=== PATIENT | female | born 1990 | race Caucasian/White ===

== ENCOUNTER 2017-10-18 14:04 | Emergency (ER) | payer MEDICAID ==
[~2017-10-18] VITALS: Ht 157.5 cm; Wt 51.0 kg
[~2017-10-18 14:04] MED LIST: AMOX500C2 PO; HYDR-3965 PO; ONDA4TAB9 PO
[2017-10-18 14:28] LABS: CLARITY,URINE CLEAR (Clear); COLOR,URINE YELLOW (Yellow); GLUCOSE, URINE NEGATIVE (Neg); KETONES,URINE TRACE mg/dl (Neg); LEUKOCYTE ESTERASE ,URINE NEGATIVE (Neg); NITRITES, URINE NEGATIVE (Neg); OCCULT BLOOD,URINE NEGATIVE (Neg); PROTEIN,URINE NEGATIVE (Neg)
[2017-10-18 14:29] LABS: UA COLLECTION TYPE VOIDED
[2017-10-18 14:30] LABS: URINE HCG NEGATIVE (NEG)
[2017-10-18 14:45] LABS: BASOPHILS % (AUTO) 0.4 % (0-1); EOSINOPHILS # (AUTO) 0.1 X10'3 (0-0.9); EOSINOPHILS % (AUTO) 1.7 % (0-6); HEMATOCRIT 41.5 % (35.0-45.0); HEMOGLOBIN 14.2 g/dl (12.0-16.0); LYMPHOCYTES # (AUTO) 0.9 X10'3 (1.1-4.8); MEAN CORPUSCULAR HGB CONC 34.1 % (33.0-36.5); MEAN PLATELET VOLUME 7.8 FL (7.4-10.4); MONOCYTES # (AUTO) 0.4 X10'3 (0-0.9); NEUTROPHILS # (AUTO) 3.8 X10'3 (1.8-7.7); NEUTROPHILS % (AUTO) 72.9 % (42-75); PLATELET COUNT 271 X10'3 (140-440); RED BLOOD COUNT 4.72 X10'6 (4.20-5.60); RED CELL DISTRIBUTION WIDTH 13.1 % (11.5-14.5); WHITE BLOOD COUNT 5.2 X10'3 (4.5-11.0)
[2017-10-18 14:54] LABS: PROTHROMBIN TIME 10.5 SECONDS (9.0-12.0)
[2017-10-18 15:05] LABS: ALANINE AMINOTRANSFERASE 16 U/L (12-78); ALBUMIN 4.1 G/DL (3.4-5.0); ALKALINE PHOSPHATASE 80 IU/L (46-116); ANION GAP 9 (8-16); ASPARTATE AMINO TRANSFERASE 13 U/L (10-37); BILIRUBIN,TOTAL 0.6 MG/DL (0.1-1.0); BLOOD UREA NITROGEN 11 MG/DL (7-18); BUN/CREATININE RATIO 12.1 (6.6-38.0); CALCIUM 9.3 MG/DL (8.5-10.1); CHLORIDE 102 MMOL/L (99-107); CREATININE 0.91 MG/DL (0.40-0.90); GLUCOSE 90 MG/DL (70-104); POTASSIUM 4.1 MMOL/L (3.5-5.1); SODIUM 139 MMOL/L (135-145); TOTAL CARBON DIOXIDE 27.9 MMOL/L (24-32); TOTAL PROTEIN 8.2 G/DL (6.4-8.2); eGFR 75 ML/MIN
[2017-10-18] MEDS ORDERED: normal saline 1000ML IV soln IVB ONE (15:35)
[2017-10-18 15:56] LABS: LIPASE 134 U/L (73-393)
[2017-10-18] MEDS ORDERED: magnesium citrate 296ml oral solution PO ONE (16:25)
[2017-10-18 16:43] VITALS: BP 106/51
== END 2017-10-18 16:50 | disposition home or self-care (01) ==
LOC: ER 14:04
DX: K59.00 Constipation, unspecified (principal); R10.12 Left upper quadrant pain; R30.0 Dysuria; N89.8 Other specified noninflammatory disorders of vagina; J45.909 Unspecified asthma, uncomplicated; F17.200 Nicotine dependence, unspecified, uncomplicated; Z88.1 Allergy status to other antibiotic agents
CPT/HCPCS: 36415; 71045; 80053; 81003; 81025; 83690; 85025; 85610; 99285; J7030

== ENCOUNTER 2018-10-13 08:55 | Emergency (ER) | payer MEDICAID ==
[~2018-10-13] VITALS: Ht 154.9 cm; Wt 49.0 kg
[2018-10-13] MEDS ORDERED: azithromycin 250mg tablet PO ONE (10:25)
[2018-10-13] MEDS ORDERED: CefTRIAXone 250MG inj IM ONE (10:25)
[2018-10-13] MEDS ORDERED: penicillin G benzathine 1.2 million unit/2ml syringe IM ONE (10:25)
[2018-10-13] MEDS ORDERED: ondansetron 4mg rapidly disintigrating tab PO ONE (10:25)
[2018-10-13] MEDS ORDERED: CefTRIAXone 250MG IM Kit w/LIDOcaine IM ONE (10:45)
[2018-10-13 11:15] VITALS: BP 101/56
--- NOTE | 2018-10-13 12:01 | NUR ---
Dr Monroy in to address all questions and concerns prior to discharge.
[2018-10-14 06:11] LABS: RPR Non Reactive (Non Reactive)
== END 2018-10-13 12:00 | disposition home or self-care (01) ==
LOC: ER 08:55
DX: N89.8 Other specified noninflammatory disorders of vagina (principal); J45.909 Unspecified asthma, uncomplicated; F17.200 Nicotine dependence, unspecified, uncomplicated; F10.99 Alcohol use, unspecified with unspecified alcohol-induced disorder; F12.90 Cannabis use, unspecified, uncomplicated; Z20.2 Contact with and (suspected) exposure to infections with a predominantly sexual mode of transmission; Z88.1 Allergy status to other antibiotic agents; Z79.899 Other long term (current) drug therapy; Y90.9 Presence of alcohol in blood, level not specified
CPT/HCPCS: 36415; 86592; 87491; 87591; 96372; 99283; J0561; J0696; J2405

== ENCOUNTER 2019-07-15 04:05 | Emergency (ER) | payer MEDICAID ==
[~2019-07-15] VITALS: Ht 154.9 cm; Wt 50.0 kg
[2019-07-15] MEDS ORDERED: AMOX500C2 PO (04:10)
[2019-07-15] MEDS ORDERED: METH4TAB81 PO (04:10)
[2019-07-15] MEDS ORDERED: HYDR-3965 PO (04:14)
[2019-07-15] MEDS ORDERED: ONDA4TAB6 PO (04:14)
[2019-07-15] MEDS ORDERED: ketorolac tromethamine 15mg/ml inj. IM ONE (04:15)
[2019-07-15] MEDS ORDERED: acetaminophen 325mg tablet PO ONE (04:15)
[2019-07-15 04:26] VITALS: BP 137/91
== END 2019-07-15 04:27 | disposition home or self-care (01) ==
LOC: ER 04:06
DX: K04.1 Necrosis of pulp (principal); J45.909 Unspecified asthma, uncomplicated; F12.90 Cannabis use, unspecified, uncomplicated; Z72.89 Other problems related to lifestyle; Z79.899 Other long term (current) drug therapy; Z88.1 Allergy status to other antibiotic agents
CPT/HCPCS: 96372; 99283; J1885

== ENCOUNTER 2019-08-24 10:52 | Emergency (ER) | payer MEDICAID ==
[~2019-08-24] VITALS: Ht 154.9 cm; Wt 55.0 kg
[~2019-08-24 10:52] MED LIST changes: +METH4TAB81 PO; +ONDA4TAB6 PO
[2019-08-24 10:56] VITALS: BP 131/84
[2019-08-24] MEDS ORDERED: AMOX-422 PO (11:28)
[2019-08-24] MEDS ORDERED: VIT1LOZE PO (11:41)
== END 2019-08-24 11:52 | disposition home or self-care (01) ==
LOC: ER 10:52
DX: J02.0 Streptococcal pharyngitis (principal); B95.0 Streptococcus, group A, as the cause of diseases classified elsewhere; J45.909 Unspecified asthma, uncomplicated; F12.90 Cannabis use, unspecified, uncomplicated; Z72.89 Other problems related to lifestyle; Z88.1 Allergy status to other antibiotic agents; Z79.899 Other long term (current) drug therapy
CPT/HCPCS: 87880; 99283

== ENCOUNTER 2019-11-17 02:54 | Emergency (ER) | payer MEDICAID ==
[~2019-11-17] VITALS: Ht 154.9 cm; Wt 52.3 kg
[~2019-11-17 02:54] MED LIST changes: +VIT1LOZE PO
--- NOTE | 2019-11-17 03:33 | NUR ---
pt just got back from xray
[2019-11-17] MEDS ORDERED: terbutaline 1 mg/ml inj SQ STA (03:49)
[2019-11-17] MEDS ORDERED: azithromycin 250mg tablet PO ONE (03:50)
[2019-11-17] MEDS ORDERED: albuterol 2.5 MG/3 ML nebule CONTNEB PRN (03:50)
--- NOTE | 2019-11-17 04:06 | NUR ---
SHE SOUNDS A LITTLE WHEEZY WHEN I WAS GIVING HER THE BREATHINE INJ.
[2019-11-17] MEDS ORDERED: benzonatate 100mg capsule PO ONE (04:50)
[2019-11-17] MEDS ORDERED: LIDOcaine 40mg/ml topical solution IH ONE (05:50)
--- NOTE | 2019-11-17 05:50 | NUR ---
pt still continuously coughing despite RX. notified, orders received.
[2019-11-17] MEDS ORDERED: BENZ-16 PO (06:51)
[2019-11-17] MEDS ORDERED: ALBU6.7H9 INH (06:51)
[2019-11-17] MEDS ORDERED: PRED20TA PO (06:51)
[2019-11-17 07:18] VITALS: BP 137/95
[2019-11-17] MEDS ORDERED: ALBU8HFA PO (12:49)
[2019-11-18] MEDS ORDERED: PRED10TA23 PO (12:32)
[2019-11-18] MEDS ORDERED: LEVO500T89 PO (12:45)
== END 2019-11-17 07:19 | disposition home or self-care (01) ==
LOC: ER 02:55
DX: J45.901 Unspecified asthma with (acute) exacerbation (principal); F17.210 Nicotine dependence, cigarettes, uncomplicated; F12.90 Cannabis use, unspecified, uncomplicated; Z72.89 Other problems related to lifestyle; Z88.1 Allergy status to other antibiotic agents; Z79.899 Other long term (current) drug therapy
CPT/HCPCS: 71046; 94640; 94644; 96372; 99285; J2001; J3105; 94760

== ENCOUNTER 2019-11-17 10:50 | Inpatient (IN) | payer MEDICAID ==
[~2019-11-17] VITALS: Ht 154.9 cm; Wt 52.3 kg
[~2019-11-17 10:50] MED LIST changes: +ALBU6.7H9 INH; +BENZ-16 PO; +PRED20TA PO
[2019-11-17] MEDS ORDERED: magnesium 2GM in 50ml NS 50 ML IV ONE (11:10)
[2019-11-17] MEDS ORDERED: normal saline 1000ML IV soln IVB ONE (11:10)
[2019-11-17] MEDS ORDERED: methylPREDNISolone sod succ 125mg/2ml vial IV ONE (11:10)
[2019-11-17] MEDS ORDERED: albuterol 2.5 MG/3 ML nebule CONTNEB PRN (11:10)
[2019-11-17] MEDS ORDERED: CefTRIAXone 2gm/D5W 50ml 50 ML IV ONE (11:25)
[2019-11-17] MEDS ORDERED: azithromycin/NS 500mg/250ml 250 ML IV ONE (11:25)
[2019-11-17] MEDS ORDERED: terbutaline 1 mg/ml inj SQ STA (11:25)
[2019-11-17] MEDS ORDERED: LORazepam 2 mg/ml vial IV ONE (11:25)
[2019-11-17 11:34] LABS: BASOPHILS # (AUTO) 0.1 X10'3 (0-0.2); BASOPHILS % (AUTO) 0.8 % (0-1); EOSINOPHILS # (AUTO) 0.7 X10'3 (0-0.9); EOSINOPHILS % (AUTO) 6.3 % (0-6); HEMOGLOBIN 13.6 g/dl (12.0-16.0); LYMPHOCYTES # (AUTO) 1.9 X10'3 (1.1-4.8); LYMPHOCYTES % (AUTO) 16.9 % (21-51); MEAN CORPUSCULAR HEMOGLOBIN 30.1 PG (27.0-31.0); MEAN CORPUSCULAR HGB CONC 33.9 g/dL (33.0-36.5); MEAN CORPUSCULAR VOLUME 88.7 FL (78-98); MONOCYTES # (AUTO) 0.7 X10'3 (0-0.9); MONOCYTES % (AUTO) 6.5 % (2-12); NEUTROPHILS # (AUTO) 7.8 X10'3 (1.8-7.7); NEUTROPHILS % (AUTO) 69.5 % (42-75); PLATELET COUNT 273 X10'3 (140-440); RED BLOOD COUNT 4.51 X10'6 (4.20-5.60); RED CELL DISTRIBUTION WIDTH 13.7 % (11.5-14.5); WHITE BLOOD COUNT 11.2 X10'3 (4.5-11.0)
[2019-11-17 11:51] LABS: ALANINE AMINOTRANSFERASE 29 U/L (12-78); ALBUMIN 4.5 G/DL (3.4-5.0); ALBUMIN/GLOBULIN RATIO 1.3 (1.1-1.5); ALKALINE PHOSPHATASE 58 IU/L (46-116); ANION GAP 11 (8-16); ASPARTATE AMINO TRANSFERASE 33 U/L (10-37); BILIRUBIN,TOTAL 0.5 MG/DL (0.1-1.0); BLOOD UREA NITROGEN 13 MG/DL (7-18); BUN/CREATININE RATIO 16.9 (6.6-38.0); CALCIUM 9.1 MG/DL (8.5-10.1); CHLORIDE 103 MMOL/L (99-107); CREATININE 0.77 MG/DL (0.40-0.90); GLUCOSE 83 MG/DL (70-104); POTASSIUM 3.9 MMOL/L (3.5-5.1); SODIUM 137 MMOL/L (135-145); TOTAL CARBON DIOXIDE 22.7 MMOL/L (24-32); TOTAL PROTEIN 7.9 G/DL (6.4-8.2); eGFR 90 ML/MIN
--- NOTE | 2019-11-17 11:53 | NUR ---
RT at bedside, breathing treatment in progress. Patient has dry cough, anxious. IV's x 2 establsihed. radiation therapy technologist collected blood at bedside. Patient declined blanket.
[2019-11-17] MEDS ORDERED: ipratropium/albuterol 3ml nebule NEB ONE (12:20)
[2019-11-17] MEDS ORDERED: ALBU8HFA PO (12:49)
[2019-11-17] MEDS ORDERED: HYDROcodone/acetaminophen 5mg/325mg tablet PO PRN (12:55)
[2019-11-17] MEDS ORDERED: potassium Cl 20 mEq SR tablet PO PRN ×2 (12:55)
[2019-11-17] MEDS ORDERED: morphine 2 MG/ML inj. syringe IV PRN (12:55)
[2019-11-17] MEDS ORDERED: mag hydrox/Alum hydrox/simeth 30ml oral suspension PO PRN (12:55)
[2019-11-17] MEDS ORDERED: magnesium 4gm in 100ml NS 100 ML IV PRN (12:55)
[2019-11-17] MEDS ORDERED: magnesium hydroxide 30ml (MOM) UD suspension PO PRN (12:55)
[2019-11-17] MEDS ORDERED: magnesium 2GM in 50ml NS 50 ML IV PRN (12:55)
[2019-11-17] MEDS ORDERED: potassium CL 10mEq/100ml bag 100 ML IV PRN ×2 (12:55)
[2019-11-17] MEDS ORDERED: ondansetron/PF 4mg/2ml inj IV PRN (12:55)
[2019-11-17] MEDS ORDERED: magnesium Cl slow-release 64mg tablet PO PRN (12:55)
[2019-11-17] MEDS ORDERED: acetaminophen 325mg tablet PO PRN ×2 (12:55)
--- NOTE | 2019-11-17 13:00 | NUR ---
AFTER ATIVAN ADMINISTRATION PATIENT REPORTS FEELING LIKE SHE IS DREAMING AND FEELING SLEEPY. PATIENT REASSURED THAT ATIVAN CAN HAVE THAT AFFECT. PATIENT RESTING IN BED WITH EYES CLOSED, COUGHING OFTEN.
--- NOTE | 2019-11-17 14:26 | NUR ---
I have received report from Melonie, student nurse and had the opportunity to ask questions and assume patient care.
--- NOTE | 2019-11-17 14:40 | NUR ---
Pt arrived to neuro floor via gurney. Transferred to hospital bed.
[2019-11-17 15:00] VITALS: BP 98/50
[2019-11-17] MEDS: albuterol 2.5 MG/3 ML nebule NEB SCH ×2 (16:00→20:50)
[2019-11-17 18:00] VITALS: BP 98/53
--- NOTE | 2019-11-17 18:27 | NUR ---
Problems reprioritized. Patient report given, questions answered & plan of care reviewed with PENNY Pinedo.
--- NOTE | 2019-11-17 18:29 | NUR ---
Patient in room [facility] 4015. I have received report from Naty FRANCIS and had the opportunity to ask questions and assume patient care.
[2019-11-17] MEDS: methylPREDNISolone sod succ 125mg/2ml vial IV SCH (19:34)
[2019-11-17] MEDS: heparin, porcine 5000 units/ml vial SQ SCH (19:37)
[2019-11-17] MEDS: K and/or MAG REPLACEMENT MC SCH (19:38)
[2019-11-17 20:11] LABS: CLARITY,URINE CLEAR (Clear); COLOR,URINE YELLOW (Yellow); GLUCOSE, URINE NEGATIVE (Neg); KETONES,URINE 40 mg/dl (Neg); LEUKOCYTE ESTERASE ,URINE NEGATIVE (Neg); NITRITES, URINE NEGATIVE (Neg); OCCULT BLOOD,URINE TRACE-INTACT (Neg); PH,URINE 5.5 (4.8-8.0); PROTEIN,URINE NEGATIVE (Neg); UROBILINOGEN,URINE 0.2 E.U/dL (0.2-1.0)
[2019-11-17 20:12] LABS: UA COLLECTION TYPE URINAL; URINE HCG NEGATIVE (NEG)
[2019-11-17 20:17] LABS: BACTERIA,URINE NONE SEEN /HPF (Neg); RBC,URINE 0-2 /HPF (0-2); SQUAMOUS EPITHELIAL CELL,UR MODERATE /LPF (FEW); WBC,URINE 0-4 /HPF (0-4)
[2019-11-17 20:24] LABS: URINE AMPHETAMINE SCREEN POSITIVE (Neg); URINE BARBITUATE SCREEN NEGATIVE (Neg); URINE BENZODIAZEPINES SCREEN NEGATIVE (Neg); URINE CANNABINOID SCREEN POSITIVE (Neg); URINE COCAINE SCREEN NEGATIVE (Neg); URINE METHADONE SCREEN NEGATIVE (Neg); URINE OPIATE SCREEN NEGATIVE (Neg); URINE PHENCYCLIDINE SCREEN NEGATIVE (Neg)
[2019-11-17] MEDS ORDERED: temazepam 15mg capsule PO PRN (21:00)
[2019-11-17 22:00] VITALS: BP 113/70
--- NOTE | 2019-11-17 22:19 | NUR ---
Patient very lethargic and will not stay awake to try to do the admission assessments. Documented patient belongings though.
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
[2019-11-18] MEDS: albuterol 2.5 MG/3 ML nebule NEB SCH ×4 (00:05→10:44)
--- NOTE | 2019-11-18 05:31 | NUR ---
Ok to give info to Rosetta mother in law. Number [phone]
[2019-11-18 06:00] VITALS: BP 94/38
--- NOTE | 2019-11-18 06:12 | NUR ---
Problems reprioritized. Patient report given, questions answered & plan of care reviewed with Mandi FRANCIS.
[2019-11-18 07:21] LABS: BASOPHILS % (AUTO) 0.2 % (0-1); EOSINOPHILS % (AUTO) 0.1 % (0-6); HEMATOCRIT 36.4 % (35.0-45.0); HEMOGLOBIN 12.3 g/dl (12.0-16.0); LYMPHOCYTES # (AUTO) 0.8 X10'3 (1.1-4.8); LYMPHOCYTES % (AUTO) 7.8 % (21-51); MEAN CORPUSCULAR HEMOGLOBIN 30.4 PG (27.0-31.0); MEAN CORPUSCULAR HGB CONC 33.9 g/dL (33.0-36.5); MEAN CORPUSCULAR VOLUME 89.6 FL (78-98); MEAN PLATELET VOLUME 8.4 FL (7.4-10.4); MONOCYTES # (AUTO) 0.4 X10'3 (0-0.9); MONOCYTES % (AUTO) 4.2 % (2-12); NEUTROPHILS # (AUTO) 8.5 X10'3 (1.8-7.7); NEUTROPHILS % (AUTO) 87.7 % (42-75); PLATELET COUNT 254 X10'3 (140-440); RED BLOOD COUNT 4.06 X10'6 (4.20-5.60); RED CELL DISTRIBUTION WIDTH 13.8 % (11.5-14.5); WHITE BLOOD COUNT 9.7 X10'3 (4.5-11.0)
[2019-11-18 07:35] LABS: ALANINE AMINOTRANSFERASE 23 U/L (12-78); ALBUMIN 3.7 G/DL (3.4-5.0); ALBUMIN/GLOBULIN RATIO 1.2 (1.1-1.5); ALKALINE PHOSPHATASE 49 IU/L (46-116); ANION GAP 9 (8-16); ASPARTATE AMINO TRANSFERASE 26 U/L (10-37); BILIRUBIN,TOTAL 0.4 MG/DL (0.1-1.0); BLOOD UREA NITROGEN 12 MG/DL (7-18); BUN/CREATININE RATIO 19.7 (6.6-38.0); CALCIUM 8.4 MG/DL (8.5-10.1); CHLORIDE 106 MMOL/L (99-107); CREATININE 0.61 MG/DL (0.40-0.90); GLUCOSE 119 MG/DL (70-104); MAGNESIUM 2.5 MG/DL (1.5-2.4); POTASSIUM 4.2 MMOL/L (3.5-5.1); SODIUM 137 MMOL/L (135-145); TOTAL CARBON DIOXIDE 22.1 MMOL/L (24-32); TOTAL PROTEIN 6.9 G/DL (6.4-8.2); eGFR > 90 ML/MIN
[2019-11-18] MEDS: K and/or MAG REPLACEMENT MC SCH (08:00)
[2019-11-18] MEDS ORDERED: CefTRIAXone 2gm/D5W 50ml 50 ML IV SCH (08:00)
[2019-11-18] MEDS: methylPREDNISolone sod succ 125mg/2ml vial IV SCH (08:09)
[2019-11-18] MEDS: heparin, porcine 5000 units/ml vial SQ SCH (08:09)
[2019-11-18 10:00] VITALS: BP 123/76
[2019-11-18] MEDS ORDERED: PRED10TA23 PO (12:32)
[2019-11-18] MEDS ORDERED: LEVO500T89 PO (12:45)
== END 2019-11-18 13:20 | disposition home or self-care (01) | DRG 140 ==
LOC: ER 10:51 → ED HOLD 12:54 → ORTHO 4S 14:37
PROVIDERS: ADMIT Internal Medicine; ATTEND Internal Medicine
DX: J44.1 Chronic obstructive pulmonary disease with (acute) exacerbation (principal); F15.90 Other stimulant use, unspecified, uncomplicated; J45.902 Unspecified asthma with status asthmaticus; Z87.11 Personal history of peptic ulcer disease; Z87.891 Personal history of nicotine dependence; Z88.8 Allergy status to other drugs, medicaments and biological substances
CPT/HCPCS: 36415; 71045; 80053; 80305; 81001; 81025; 83605; 83735; 84145; 85025; 87040; 87081; 93306; 94640; 94760; 96365; 96372; 96375; 99291; G0378; J0456; J0696; J1644; J2060; J2930; J3105; J3475; J7030

== ENCOUNTER 2019-12-22 20:51 | Emergency (ER) | payer MEDICAID ==
[~2019-12-22] VITALS: Ht 154.9 cm; Wt 59.1 kg
[~2019-12-22 20:51] MED LIST changes: -ALBU6.7H9 INH; +ALBU8HFA PO; -AMOX500C2 PO; -BENZ-16 PO; -HYDR-3965 PO; +LEVO500T89 PO; -METH4TAB81 PO; -ONDA4TAB6 PO; -ONDA4TAB9 PO; -PRED20TA PO; -VIT1LOZE PO
--- NOTE | 2019-12-22 21:14 | NUR ---
RT WAS PAGED XRAY TO DO A PORTABLE VS TAKING HER R/T HER NEEDING A NEB TX
[2019-12-22] MEDS ORDERED: ipratropium/albuterol 3ml nebule NEB ONE (21:15)
[2019-12-22 21:54] LABS: BASOPHILS % (AUTO) 0.3 % (0-1); EOSINOPHILS # (AUTO) 0.3 X10'3 (0-0.9); EOSINOPHILS % (AUTO) 4.1 % (0-6); HEMATOCRIT 45.1 % (35.0-45.0); LYMPHOCYTES # (AUTO) 2.5 X10'3 (1.1-4.8); LYMPHOCYTES % (AUTO) 32.3 % (21-51); MEAN CORPUSCULAR HGB CONC 33.2 g/dL (33.0-36.5); MEAN CORPUSCULAR VOLUME 90.3 FL (78-98); MEAN PLATELET VOLUME 8.8 FL (7.4-10.4); MONOCYTES # (AUTO) 0.6 X10'3 (0-0.9); MONOCYTES % (AUTO) 7.4 % (2-12); NEUTROPHILS # (AUTO) 4.3 X10'3 (1.8-7.7); NEUTROPHILS % (AUTO) 55.9 % (42-75); PLATELET COUNT 260 X10'3 (140-440); RED BLOOD COUNT 4.99 X10'6 (4.20-5.60); RED CELL DISTRIBUTION WIDTH 13.4 % (11.5-14.5); WHITE BLOOD COUNT 7.8 X10'3 (4.5-11.0)
[2019-12-22 22:00] LABS: ALANINE AMINOTRANSFERASE 21 U/L (12-78); ALBUMIN 4.2 G/DL (3.4-5.0); ALBUMIN/GLOBULIN RATIO 1.2 (1.1-1.5); ALKALINE PHOSPHATASE 67 IU/L (46-116); ANION GAP 11 (8-16); ASPARTATE AMINO TRANSFERASE 17 U/L (10-37); BILIRUBIN,TOTAL 0.2 MG/DL (0.1-1.0); BLOOD UREA NITROGEN 9 MG/DL (7-18); BUN/CREATININE RATIO 11.3 (6.6-38.0); CALCIUM 9.4 MG/DL (8.5-10.1); CHLORIDE 105 MMOL/L (99-107); GLUCOSE 111 MG/DL (70-104); POTASSIUM 3.8 MMOL/L (3.5-5.1); SODIUM 141 MMOL/L (135-145); TOTAL CARBON DIOXIDE 24.9 MMOL/L (24-32); TOTAL PROTEIN 7.7 G/DL (6.4-8.2); eGFR 86 ML/MIN
[2019-12-22] MEDS ORDERED: albuterol 2.5 MG/3 ML nebule NEB ONE (22:15)
[2019-12-22] MEDS ORDERED: magnesium 2GM in 50ml NS 50 ML IV ONE (22:15)
[2019-12-22] MEDS ORDERED: methylPREDNISolone sod succ 125mg/2ml vial IV ONE (22:15)
[2019-12-22] MEDS ORDERED: normal saline 1000ml 1,000 ML IV ONE (22:20)
[2019-12-22 22:35] LABS: D-DIMER 0.29 MG/L FEU (0-0.50)
[2019-12-22] MEDS ORDERED: albuterol 2.5 MG/3 ML nebule CONTNEB PRN (22:35)
--- NOTE | 2019-12-23 00:13 | NUR ---
fluuter valve usage produced thick yellow mucous.
[2019-12-23] MEDS ORDERED: ALBU8HFA PO (00:46)
[2019-12-23] MEDS ORDERED: PRED20TA PO (00:46)
[2019-12-23 00:56] VITALS: BP 123/78
== END 2019-12-23 00:58 | disposition home or self-care (01) ==
LOC: ER 20:51
DX: J45.901 Unspecified asthma with (acute) exacerbation (principal); R06.02 Shortness of breath; R07.81 Pleurodynia; R05 Cough; F12.90 Cannabis use, unspecified, uncomplicated; F15.90 Other stimulant use, unspecified, uncomplicated; F17.200 Nicotine dependence, unspecified, uncomplicated; Z87.11 Personal history of peptic ulcer disease; Z72.89 Other problems related to lifestyle; Z88.1 Allergy status to other antibiotic agents; Z79.2 Long term (current) use of antibiotics; Z79.899 Other long term (current) drug therapy
CPT/HCPCS: 36415; 71046; 80053; 83605; 83880; 85025; 85379; 87040; 94640; 94644; 94667; 96365; 96375; 99285; J2930; J3475; J7030; 94760; A7015

== ENCOUNTER 2020-01-15 14:50 | Inpatient (IN) | payer MEDICAID ==
[~2020-01-15] VITALS: Ht 154.9 cm; Wt 54.5 kg
[2020-01-15] MEDS ORDERED: ipratropium/albuterol 3ml nebule NEB ONE (15:00)
[2020-01-15 16:25] LABS: BASOPHILS # (AUTO) 0.1 X10'3 (0-0.2); EOSINOPHILS # (AUTO) 1.8 X10'3 (0-0.9); EOSINOPHILS % (AUTO) 21.4 % (0-6); HEMATOCRIT 40.6 % (35.0-45.0); HEMOGLOBIN 13.6 g/dl (12.0-16.0); LYMPHOCYTES # (AUTO) 1.5 X10'3 (1.1-4.8); LYMPHOCYTES % (AUTO) 18.5 % (21-51); MEAN CORPUSCULAR HEMOGLOBIN 30.2 PG (27.0-31.0); MEAN CORPUSCULAR HGB CONC 33.6 g/dL (33.0-36.5); MEAN CORPUSCULAR VOLUME 89.9 FL (78-98); MEAN PLATELET VOLUME 8.2 FL (7.4-10.4); MONOCYTES # (AUTO) 0.5 X10'3 (0-0.9); MONOCYTES % (AUTO) 5.5 % (2-12); NEUTROPHILS # (AUTO) 4.5 X10'3 (1.8-7.7); NEUTROPHILS % (AUTO) 53.6 % (42-75); PLATELET COUNT 284 X10'3 (140-440); RED BLOOD COUNT 4.51 X10'6 (4.20-5.60); RED CELL DISTRIBUTION WIDTH 12.9 % (11.5-14.5); WHITE BLOOD COUNT 8.3 X10'3 (4.5-11.0)
[2020-01-15 16:39] LABS: ALANINE AMINOTRANSFERASE 26 U/L (12-78); ALBUMIN 3.7 G/DL (3.4-5.0); ALBUMIN/GLOBULIN RATIO 1.2 (1.1-1.5); ALKALINE PHOSPHATASE 55 IU/L (46-116); ANION GAP 8 (8-16); ASPARTATE AMINO TRANSFERASE 19 U/L (10-37); BILIRUBIN,TOTAL 0.4 MG/DL (0.1-1.0); BLOOD UREA NITROGEN 7 MG/DL (7-18); CHLORIDE 108 MMOL/L (99-107); GLUCOSE 115 MG/DL (70-104); SODIUM 142 MMOL/L (135-145); TOTAL CARBON DIOXIDE 26.4 MMOL/L (24-32); TOTAL PROTEIN 6.7 G/DL (6.4-8.2); eGFR > 90 ML/MIN
[2020-01-15 16:42] LABS: D-DIMER < 0.19 MG/L FEU (0-0.50)
[2020-01-15 16:51] LABS: PLATELET ESTIMATE NORMAL; TOTAL CELLS COUNTED 100
[2020-01-15] MEDS ORDERED: DOXY100C43 PO (16:55)
[2020-01-15] MEDS ORDERED: PRED20TA PO (16:55)
[2020-01-15] MEDS ORDERED: ALBU18HF2 INH (16:55)
[2020-01-15] MEDS ORDERED: dexamethasone 4mg tablet PO ONE (16:55)
[2020-01-15 16:56] LABS: C-REACTIVE PROTEIN < 0.05 MG/DL (0.0-0.5); FERRITIN 73 NG/ML (8-252); LACTATE DEHYDROGENASE 166 U/L (81-234)
[2020-01-15] MEDS ORDERED: albuterol 2.5 MG/3 ML nebule CONTNEB PRN (18:00)
[2020-01-15] MEDS ORDERED: albuterol 2.5 MG/3 ML nebule ONE (18:02)
[2020-01-15] MEDS ORDERED: terbutaline 1 mg/ml inj SQ STA (19:33)
[2020-01-15] MEDS ORDERED: LORA10TA7 PO (19:44)
[2020-01-15] MEDS ORDERED: MONT10TA26 PO (19:44)
[2020-01-15] MEDS: magnesium 2GM in 50ml NS 50 ML IV SCH ×2 (20:03→20:35)
[2020-01-15] MEDS ORDERED: magnesium hydroxide 30ml (MOM) UD suspension PO PRN (20:10)
[2020-01-15] MEDS ORDERED: potassium Cl 20 mEq SR tablet PO PRN ×2 (20:10)
[2020-01-15] MEDS ORDERED: acetaminophen 325mg tablet PO PRN (20:10)
[2020-01-15] MEDS ORDERED: normal saline 1000ml 1,000 ML IV SCH (20:10)
[2020-01-15] MEDS ORDERED: mag hydrox/Alum hydrox/simeth 30ml oral suspension PO PRN (20:10)
[2020-01-15] MEDS ORDERED: potassium CL 10mEq/100ml bag 100 ML IV PRN ×2 (20:10)
[2020-01-15] MEDS ORDERED: ondansetron/PF 4mg/2ml inj IV PRN (20:10)
[2020-01-15] MEDS: montelukast 10mg tablet PO SCH (21:49)
--- NOTE | 2020-01-16 00:06 | NUR ---
georges cash nurse on break pt sleeping comfortably iv patent without redness ot edmea. pt sats 97 % on 6 liter no acute distress noted
--- NOTE | 2020-01-16 06:21 | NUR ---
paged RT again for a breathing treatment for her. Nurse Annamarie states she had paged RT already but haven't seen them yet. the pt is resting on the bed and requesting a treatment.
--- NOTE | 2020-01-16 06:46 | NUR ---
RT is here in room with pt.
[2020-01-16] MEDS: albuterol 2.5 MG/3 ML nebule NEB PRN ×2 (06:47→14:55)
--- NOTE | 2020-01-16 07:27 | NUR ---
Patient in room ED 1. I have received report from Bertha FRANCIS ED and had the opportunity to ask questions and assume patient care.
[2020-01-16 07:29] LABS: BASOPHILS % (AUTO) 0.5 % (0-1); EOSINOPHILS % (AUTO) 0.3 % (0-6); HEMATOCRIT 41.9 % (35.0-45.0); HEMOGLOBIN 14.2 g/dl (12.0-16.0); LYMPHOCYTES # (AUTO) 0.8 X10'3 (1.1-4.8); LYMPHOCYTES % (AUTO) 7.5 % (21-51); MEAN CORPUSCULAR HEMOGLOBIN 30.5 PG (27.0-31.0); MEAN CORPUSCULAR HGB CONC 33.9 g/dL (33.0-36.5); MEAN PLATELET VOLUME 8.2 FL (7.4-10.4); MONOCYTES # (AUTO) 0.4 X10'3 (0-0.9); MONOCYTES % (AUTO) 3.7 % (2-12); NEUTROPHILS # (AUTO) 9.4 X10'3 (1.8-7.7); PLATELET COUNT 338 X10'3 (140-440); RED BLOOD COUNT 4.66 X10'6 (4.20-5.60); RED CELL DISTRIBUTION WIDTH 13.2 % (11.5-14.5); WHITE BLOOD COUNT 10.7 X10'3 (4.5-11.0)
[2020-01-16 07:48] LABS: ALANINE AMINOTRANSFERASE 27 U/L (12-78); ALBUMIN/GLOBULIN RATIO 1.2 (1.1-1.5); ALKALINE PHOSPHATASE 61 IU/L (46-116); ANION GAP 9 (8-16); ASPARTATE AMINO TRANSFERASE 15 U/L (10-37); BILIRUBIN,TOTAL 0.4 MG/DL (0.1-1.0); BLOOD UREA NITROGEN 10 MG/DL (7-18); BUN/CREATININE RATIO 15.6 (6.6-38.0); CALCIUM 9.3 MG/DL (8.5-10.1); CHLORIDE 106 MMOL/L (99-107); CREATININE 0.64 MG/DL (0.40-0.90); GLUCOSE 133 MG/DL (70-104); POTASSIUM 4.5 MMOL/L (3.5-5.1); SODIUM 140 MMOL/L (135-145); TOTAL CARBON DIOXIDE 24.7 MMOL/L (24-32); TOTAL PROTEIN 7.4 G/DL (6.4-8.2); eGFR > 90 ML/MIN
[2020-01-16] MEDS: K and/or MAG REPLACEMENT MC SCH ×2 (08:00→20:00)
[2020-01-16] MEDS ORDERED: methylPREDNISolone sod succ/PF 40mg inj. IV SCH (08:00)
[2020-01-16] MEDS: heparin, porcine 5000 units/ml vial SQ SCH ×2 (08:08→19:20)
[2020-01-16] MEDS: loratadine 10mg tablet PO SCH (08:09)
--- NOTE | 2020-01-16 15:16 | NUR ---
PAGER ID: [phone] MESSAGE: Conor Javier [id number]: RT requesting to do treatments Q4hr instead of PRN, also pt needs a nicotine patch smokes 6cigs per day. Also pt would like some pain meds. Thank you. Louise Mendoza [phone]
[2020-01-16] MEDS ORDERED: HYDROcodone/acetaminophen 5mg/325mg tablet PO PRN (15:35)
[2020-01-16] MEDS: nicotine 7mg patch - 24hr TD SCH (15:56)
[2020-01-16] MEDS: guaiFENesin ER 600mg tablet PO SCH ×2 (15:56→19:20)
[2020-01-16] MEDS: methylPREDNISolone sod succ/PF 40mg inj. IV SCH (15:56)
--- NOTE | 2020-01-16 18:20 | NUR ---
Patient in room [facility] 347. I have received report from PENNY Gil and had the opportunity to ask questions and assume patient care.
--- NOTE | 2020-01-16 18:36 | NUR ---
Problems reprioritized. Patient report given, questions answered & plan of care reviewed with Ludivina Scott RN.
[2020-01-16] MEDS: albuterol 2.5 MG/3 ML nebule NEB SCH ×2 (19:32→23:16)
[2020-01-16 20:00] VITALS: BP 124/81
[2020-01-16] MEDS: montelukast 10mg tablet PO SCH (20:14)
[2020-01-16 23:48] VITALS: BP 125/77
[2020-01-17] MEDS: methylPREDNISolone sod succ/PF 40mg inj. IV SCH ×3 (00:18→16:37)
[2020-01-17] MEDS: albuterol 2.5 MG/3 ML nebule NEB SCH ×9 (03:03→23:22)
[2020-01-17 05:10] LABS: BASOPHILS % (AUTO) 0.1 % (0-1); EOSINOPHILS % (AUTO) 0.1 % (0-6); HEMATOCRIT 40.4 % (35.0-45.0); HEMOGLOBIN 13.2 g/dl (12.0-16.0); LYMPHOCYTES # (AUTO) 0.7 X10'3 (1.1-4.8); LYMPHOCYTES % (AUTO) 5.8 % (21-51); MEAN CORPUSCULAR HEMOGLOBIN 29.9 PG (27.0-31.0); MEAN CORPUSCULAR HGB CONC 32.8 g/dL (33.0-36.5); MEAN CORPUSCULAR VOLUME 91.3 FL (78-98); MEAN PLATELET VOLUME 8.4 FL (7.4-10.4); MONOCYTES # (AUTO) 0.3 X10'3 (0-0.9); NEUTROPHILS # (AUTO) 11.5 X10'3 (1.8-7.7); PLATELET COUNT 316 X10'3 (140-440); RED BLOOD COUNT 4.42 X10'6 (4.20-5.60); RED CELL DISTRIBUTION WIDTH 13.5 % (11.5-14.5); WHITE BLOOD COUNT 12.4 X10'3 (4.5-11.0)
[2020-01-17 05:32] LABS: ALANINE AMINOTRANSFERASE 25 U/L (12-78); ALBUMIN 3.8 G/DL (3.4-5.0); ALBUMIN/GLOBULIN RATIO 1.2 (1.1-1.5); ALKALINE PHOSPHATASE 56 IU/L (46-116); ANION GAP 8 (8-16); ASPARTATE AMINO TRANSFERASE 11 U/L (10-37); BILIRUBIN,TOTAL 0.2 MG/DL (0.1-1.0); BLOOD UREA NITROGEN 15 MG/DL (7-18); BUN/CREATININE RATIO 25.4 (6.6-38.0); CALCIUM 9.2 MG/DL (8.5-10.1); CHLORIDE 109 MMOL/L (99-107); CREATININE 0.59 MG/DL (0.40-0.90); GLUCOSE 129 MG/DL (70-104); POTASSIUM 4.4 MMOL/L (3.5-5.1); SODIUM 143 MMOL/L (135-145); TOTAL CARBON DIOXIDE 26.1 MMOL/L (24-32); TOTAL PROTEIN 7.1 G/DL (6.4-8.2); eGFR > 90 ML/MIN
--- NOTE | 2020-01-17 06:27 | NUR ---
Problems reprioritized. Patient report given, questions answered & plan of care reviewed with PENNY Paredes.
[2020-01-17 08:00] VITALS: BP 143/91
[2020-01-17] MEDS: K and/or MAG REPLACEMENT MC SCH ×2 (08:00→21:10)
[2020-01-17] MEDS: nicotine 7mg patch - 24hr TD SCH (08:00)
[2020-01-17] MEDS: loratadine 10mg tablet PO SCH (08:48)
[2020-01-17] MEDS: guaiFENesin ER 600mg tablet PO SCH ×2 (08:48→19:45)
[2020-01-17] MEDS: azithromycin 250mg tablet PO SCH (08:49)
[2020-01-17] MEDS: heparin, porcine 5000 units/ml vial SQ SCH ×2 (08:51→19:46)
--- NOTE | 2020-01-17 09:17 | NUR ---
pt refused [id number] svn-given at [phone]
[2020-01-17] MEDS ORDERED: pneumococcal 23-VAL P-sac vacc 25 mcg/0.5ml vial IMVAC ONE (10:00)
[2020-01-17 11:00] VITALS: BP 104/61
[2020-01-17 18:00] VITALS: BP 122/75
--- NOTE | 2020-01-17 18:14 | NUR ---
Received report from PENNY Paredes. Patient is resting comfortably on 2.5L NC, in no apparent distress. Call light and items of frequent use within reach. Will continue to monitor.
[2020-01-17] MEDS ORDERED: LORazepam 0.5 MG tablet PO ONE (19:20)
[2020-01-17] MEDS: montelukast 10mg tablet PO SCH (21:11)
[2020-01-18] VITALS: BP 109/64
[2020-01-18] MEDS: methylPREDNISolone sod succ/PF 40mg inj. IV SCH ×2 (00:42→07:28)
[2020-01-18] MEDS: albuterol 2.5 MG/3 ML nebule NEB SCH ×2 (02:36→07:39)
[2020-01-18 05:35] LABS: ALANINE AMINOTRANSFERASE 25 U/L (12-78); ALBUMIN 3.5 G/DL (3.4-5.0); ALBUMIN/GLOBULIN RATIO 1.1 (1.1-1.5); ALKALINE PHOSPHATASE 54 IU/L (46-116); ANION GAP 7 (8-16); ASPARTATE AMINO TRANSFERASE 9 U/L (10-37); BILIRUBIN,TOTAL 0.2 MG/DL (0.1-1.0); BLOOD UREA NITROGEN 16 MG/DL (7-18); BUN/CREATININE RATIO 24.6 (6.6-38.0); CALCIUM 9.3 MG/DL (8.5-10.1); CHLORIDE 108 MMOL/L (99-107); CREATININE 0.65 MG/DL (0.40-0.90); GLUCOSE 123 MG/DL (70-104); POTASSIUM 4.2 MMOL/L (3.5-5.1); SODIUM 142 MMOL/L (135-145); TOTAL CARBON DIOXIDE 26.6 MMOL/L (24-32); TOTAL PROTEIN 6.7 G/DL (6.4-8.2); eGFR > 90 ML/MIN
[2020-01-18 05:39] LABS: BASOPHILS % (AUTO) 0.3 % (0-1); EOSINOPHILS % (AUTO) 0 % (0-6); HEMATOCRIT 38.7 % (35.0-45.0); LYMPHOCYTES # (AUTO) 0.7 X10'3 (1.1-4.8); LYMPHOCYTES % (AUTO) 6.6 % (21-51); MEAN CORPUSCULAR HEMOGLOBIN 30.8 PG (27.0-31.0); MEAN CORPUSCULAR HGB CONC 33.5 g/dL (33.0-36.5); MEAN CORPUSCULAR VOLUME 91.9 FL (78-98); MEAN PLATELET VOLUME 8.6 FL (7.4-10.4); MONOCYTES # (AUTO) 0.3 X10'3 (0-0.9); MONOCYTES % (AUTO) 2.5 % (2-12); NEUTROPHILS # (AUTO) 9.2 X10'3 (1.8-7.7); NEUTROPHILS % (AUTO) 90.6 % (42-75); PLATELET COUNT 305 X10'3 (140-440); RED BLOOD COUNT 4.21 X10'6 (4.20-5.60); RED CELL DISTRIBUTION WIDTH 13.6 % (11.5-14.5); WHITE BLOOD COUNT 10.2 X10'3 (4.5-11.0)
--- NOTE | 2020-01-18 06:14 | NUR ---
Problems reprioritized. Patient report given, questions answered & plan of care reviewed with PENNY Brownlee.
--- NOTE | 2020-01-18 06:36 | NUR ---
Patient in room [facility] 347. I have received report from PENNY Schilling and had the opportunity to ask questions and assume patient care.
[2020-01-18] MEDS: loratadine 10mg tablet PO SCH (07:28)
[2020-01-18] MEDS: guaiFENesin ER 600mg tablet PO SCH (07:28)
[2020-01-18] MEDS: azithromycin 250mg tablet PO SCH (07:28)
[2020-01-18] MEDS: nicotine 7mg patch - 24hr TD SCH (07:29)
[2020-01-18 07:32] VITALS: BP 109/62
[2020-01-18] MEDS: K and/or MAG REPLACEMENT MC SCH (07:35)
[2020-01-18] MEDS: heparin, porcine 5000 units/ml vial SQ SCH (07:35)
[2020-01-18] MEDS ORDERED: AZI25OT PO (09:18)
[2020-01-18] MEDS ORDERED: PRED10TA23 PO (09:18)
[2020-01-18] MEDS ORDERED: GUAI600T45 PO (09:18)
--- NOTE | 2020-01-18 10:48 | NUR ---
Discussed with patient discharge instructions and new prescriptions. Patient verbalized understanding of teaching and denies any questions following teaching. Patient home meds stored in pharmacy were returned to patient and she was discharged with all personal belongings, escorted out in wheel chair by Arianna JUAREZ. Patient spouse waiting in lobby for patient to transport home.
== END 2020-01-18 10:55 | disposition home or self-care (01) | DRG 145 ==
LOC: ER 14:51 → ED HOLD 20:10 → SUR 3N 01-16 07:55
PROVIDERS: ADMIT Internal Medicine; ATTEND Internal Medicine
PROC: 3E0234Z Introduction of Serum, Toxoid and Vaccine into Muscle, Percutaneous Approach (ICD-10-PCS; principal; 2020-01-17)
DX: J20.9 Acute bronchitis, unspecified (principal); J45.901 Unspecified asthma with (acute) exacerbation; Z20.828 Contact with and (suspected) exposure to other viral communicable diseases; Z88.8 Allergy status to other drugs, medicaments and biological substances; Z88.1 Allergy status to other antibiotic agents; F12.90 Cannabis use, unspecified, uncomplicated; Z87.11 Personal history of peptic ulcer disease; F17.200 Nicotine dependence, unspecified, uncomplicated; Z23 Encounter for immunization
CPT/HCPCS: 36415; 71045; 80053; 82728; 83615; 84145; 85007; 85025; 85379; 85384; 86140; 87635; 90732; 94640; 94760; 96365; 96372; 99291; C9803; G0378; J1644; J2920; J3105; J3475; J7030

== ENCOUNTER 2020-04-21 17:02 | Emergency (ER) | payer MEDICAID ==
[~2020-04-21] VITALS: Ht 154.9 cm; Wt 53.8 kg
[~2020-04-21 17:02] MED LIST changes: +AZI25OT PO; +GUAI600T45 PO; -LEVO500T89 PO; +LORA10TA7 PO; +MONT10TA32 PO
[2020-04-21] MEDS ORDERED: predniSONE 20 mg tablet PO ONE (18:00)
[2020-04-21] MEDS ORDERED: HYDROcodone & chlorphen. 10-8mg/5ml oral susp. PO PRN (18:00)
[2020-04-21] MEDS ORDERED: ketorolac tromethamine 15mg/ml inj. IV ONE (18:00)
[2020-04-21] MEDS ORDERED: benzonatate 100mg capsule PO ONE (18:00)
[2020-04-21] MEDS ORDERED: guaiFENesin/codeine phos 10ml UD oral syrup PO ONE (18:15)
[2020-04-21 18:39] LABS: BASOPHILS % (AUTO) 0.7 % (0-1); EOSINOPHILS # (AUTO) 0.7 X10'3 (0-0.9); EOSINOPHILS % (AUTO) 11.2 % (0-6); HEMATOCRIT 36.8 % (35.0-45.0); HEMOGLOBIN 12.5 g/dl (12.0-16.0); LYMPHOCYTES # (AUTO) 1.6 X10'3 (1.1-4.8); LYMPHOCYTES % (AUTO) 24.3 % (21-51); MEAN CORPUSCULAR HEMOGLOBIN 29.9 PG (27.0-31.0); MEAN CORPUSCULAR HGB CONC 33.8 g/dL (33.0-36.5); MEAN CORPUSCULAR VOLUME 88.2 FL (78-98); MEAN PLATELET VOLUME 7.5 FL (7.4-10.4); MONOCYTES # (AUTO) 0.5 X10'3 (0-0.9); MONOCYTES % (AUTO) 7.9 % (2-12); NEUTROPHILS # (AUTO) 3.6 X10'3 (1.8-7.7); NEUTROPHILS % (AUTO) 55.9 % (42-75); PLATELET COUNT 292 X10'3 (140-440); RED BLOOD COUNT 4.17 X10'6 (4.20-5.60); RED CELL DISTRIBUTION WIDTH 12.7 % (11.5-14.5); WHITE BLOOD COUNT 6.4 X10'3 (4.5-11.0)
[2020-04-21 18:57] LABS: ALANINE AMINOTRANSFERASE 25 U/L (12-78); ALBUMIN 3.5 G/DL (3.4-5.0); ALKALINE PHOSPHATASE 74 IU/L (46-116); ANION GAP 7 (8-16); ASPARTATE AMINO TRANSFERASE 11 U/L (10-37); BILIRUBIN,TOTAL 0.3 MG/DL (0.1-1.0); BLOOD UREA NITROGEN 11 MG/DL (7-18); BUN/CREATININE RATIO 14.9 (6.6-38.0); CHLORIDE 105 MMOL/L (99-107); CREATININE 0.74 MG/DL (0.40-0.90); GLUCOSE 107 MG/DL (70-104); POTASSIUM 3.6 MMOL/L (3.5-5.1); SODIUM 140 MMOL/L (135-145); TOTAL CARBON DIOXIDE 28.4 MMOL/L (24-32); eGFR > 90 ML/MIN
[2020-04-21] MEDS ORDERED: INHA1INH2 INH (20:22)
[2020-04-21] MEDS ORDERED: PRED20TA PO (20:22)
[2020-04-21] MEDS ORDERED: PROM5SYR2 PO (20:22)
[2020-04-21] MEDS ORDERED: BENZ-16 PO (20:22)
[2020-04-21 20:50] VITALS: BP 118/74
== END 2020-04-21 20:52 | disposition home or self-care (01) ==
LOC: ER 17:03
DX: J45.909 Unspecified asthma, uncomplicated (principal); F17.200 Nicotine dependence, unspecified, uncomplicated; F12.90 Cannabis use, unspecified, uncomplicated; Z88.1 Allergy status to other antibiotic agents; Z79.899 Other long term (current) drug therapy
CPT/HCPCS: 36415; 71045; 80053; 83605; 85025; 87040; 96374; 99284; J1885; J7512

== ENCOUNTER 2020-05-12 08:12 | Emergency (ER) | payer MEDICAID ==
[~2020-05-12] VITALS: Ht 154.9 cm; Wt 52.3 kg
[~2020-05-12 08:12] MED LIST changes: +BENZ-16 PO; +INHA1INH2 INH; +PRED20TA PO; +PROM5SYR2 PO
[2020-05-12] MEDS ORDERED: predniSONE 20 mg tablet PO ONE (08:25)
[2020-05-12] MEDS: albuterol 2.5 MG/3 ML nebule CONTNEB PRN ×2 (08:30→09:34)
--- NOTE | 2020-05-12 09:36 | NUR ---
PATIENT STILL WHHEZY POST 10 MG ALBUTER CONTINUOS NEB,PLACED PATIENT ON A SECOND 10 MG ALBUTEROL CONTINUOUS NEB TX PER DR. OLRA. PT TOLERATING TREATMENTS WELL. RT WILL RETURN IN 1 HR TO REASSESS PATIENT.
--- NOTE | 2020-05-12 11:00 | NUR ---
Still wheezy with inspirations and expirations,Dr. Holt to admit patient.Covid swab collected.patient on high fowlers,call light within reach. We will monitor.
[2020-05-12 11:11] LABS: BASOPHILS # (AUTO) 0.1 X10'3 (0-0.2); BASOPHILS % (AUTO) 0.6 % (0-1); EOSINOPHILS # (AUTO) 0.4 X10'3 (0-0.9); EOSINOPHILS % (AUTO) 3.4 % (0-6); HEMATOCRIT 38.8 % (35.0-45.0); HEMOGLOBIN 12.8 g/dl (12.0-16.0); LYMPHOCYTES # (AUTO) 1.1 X10'3 (1.1-4.8); LYMPHOCYTES % (AUTO) 9.6 % (21-51); MEAN CORPUSCULAR HEMOGLOBIN 29.5 PG (27.0-31.0); MEAN CORPUSCULAR HGB CONC 33.1 g/dL (33.0-36.5); MEAN CORPUSCULAR VOLUME 88.9 FL (78-98); MEAN PLATELET VOLUME 7.7 FL (7.4-10.4); MONOCYTES # (AUTO) 0.3 X10'3 (0-0.9); MONOCYTES % (AUTO) 2.3 % (2-12); NEUTROPHILS # (AUTO) 9.6 X10'3 (1.8-7.7); NEUTROPHILS % (AUTO) 84.1 % (42-75); PLATELET COUNT 267 X10'3 (140-440); RED BLOOD COUNT 4.36 X10'6 (4.20-5.60); RED CELL DISTRIBUTION WIDTH 12.8 % (11.5-14.5); WHITE BLOOD COUNT 11.4 X10'3 (4.5-11.0)
--- NOTE | 2020-05-12 11:32 | NUR ---
Patient without improvement from breathing treatment x2 still wheezy and coughing, aware.
[2020-05-12 11:40] LABS: ALANINE AMINOTRANSFERASE 23 U/L (12-78); ALBUMIN 3.8 G/DL (3.4-5.0); ALBUMIN/GLOBULIN RATIO 1.1 (1.1-1.5); ALKALINE PHOSPHATASE 80 IU/L (46-116); ANION GAP 9 (8-16); ASPARTATE AMINO TRANSFERASE 13 U/L (10-37); BILIRUBIN,TOTAL 0.3 MG/DL (0.1-1.0); BLOOD UREA NITROGEN 12 MG/DL (7-18); BUN/CREATININE RATIO 17.9 (6.6-38.0); CALCIUM 8.8 MG/DL (8.5-10.1); CHLORIDE 108 MMOL/L (99-107); CREATININE 0.67 MG/DL (0.40-0.90); GLUCOSE 143 MG/DL (70-104); POTASSIUM 4.2 MMOL/L (3.5-5.1); SODIUM 143 MMOL/L (135-145); TOTAL CARBON DIOXIDE 25.8 MMOL/L (24-32); TOTAL PROTEIN 7.3 G/DL (6.4-8.2); eGFR > 90 ML/MIN
[2020-05-12] MEDS ORDERED: ondansetron/PF 4mg/2ml inj IV PRN (12:40)
[2020-05-12] MEDS ORDERED: HYDROcodone/acetaminophen 5mg/325mg tablet PO PRN (12:40)
[2020-05-12] MEDS ORDERED: albuterol 2.5 MG/3 ML nebule NEB PRN (12:40)
[2020-05-12] MEDS ORDERED: magnesium hydroxide 30ml (MOM) UD suspension PO PRN (12:40)
[2020-05-12] MEDS ORDERED: acetaminophen 325mg tablet PO PRN ×2 (12:40)
[2020-05-12] MEDS ORDERED: mag hydrox/Alum hydrox/simeth 30ml oral suspension PO PRN (12:40)
[2020-05-12] MEDS ORDERED: morphine 2 MG/ML inj. syringe IV PRN ×2 (12:40)
--- NOTE | 2020-05-12 13:08 | NUR ---
patient asleep with regular respirations,awaiting for room assignment.
--- NOTE | 2020-05-12 13:19 | NUR ---
requested cough medication from Dr. Lau-awaiting call from .
[2020-05-12 16:42] VITALS: BP 112/75
[2020-05-12] MEDS ORDERED: methylPREDNISolone sod succ 125mg/2ml vial IV SCH (17:55)
--- NOTE | 2020-05-12 18:35 | NUR ---
PATIENT IS UPSET AND CRYING ANS STATES" I JUST WANT TO GO HOME". WILL NOTIFY ON COMING HOSPITALIST.
--- NOTE | 2020-05-12 18:45 | NUR ---
PT ASKING FOR BREATHING TX, HAVING A COUGHING EPISODE. WILL PAGE
--- NOTE | 2020-05-12 19:00 | NUR ---
RT AT BEDSIDE
--- NOTE | 2020-05-12 20:05 | NUR ---
INFORMED HOSPITALIST THAT PATIENT WANTS TO GO HOME. HE STATED SHE COULD GO AMA. I TOLD THE PATIENT THIS BUT SHE WANTS MEDS TO GO HOME WITH. I INFORMED HER THAT THE IF SHE GOES AMA SHE WILL NOT RECEIVE PRESCIPTIONS.
== END 2020-05-12 20:22 | disposition left against medical advice (07) ==
LOC: ER 08:13 → UNDOADMIN 12:36 → ED HOLD 12:36 → ER 20:22 → UNDODISIN 20:30
DX: J45.901 Unspecified asthma with (acute) exacerbation (principal); Z20.822 Contact with and (suspected) exposure to COVID-19; F17.200 Nicotine dependence, unspecified, uncomplicated; F12.90 Cannabis use, unspecified, uncomplicated; Z79.899 Other long term (current) drug therapy
CPT/HCPCS: 36415; 71045; 80053; 85025; 87635; 93005; 94640; 94644; 96374; 99291; C9803; J2930; J7512; 94760; A7015; G0378

== ENCOUNTER 2021-01-03 16:28 | Emergency (ER) | payer MEDICAID ==
[~2021-01-03] VITALS: Ht 154.9 cm; Wt 50.0 kg
[~2021-01-03 16:28] MED LIST changes: -AZI25OT PO; -BENZ-16 PO; -GUAI600T45 PO; -INHA1INH2 INH; -LORA10TA7 PO; -MONT10TA32 PO; -PRED20TA PO; -PROM5SYR2 PO
[2021-01-03 16:45] VITALS: BP 138/89
[2021-01-03] MEDS ORDERED: ipratropium/albuterol 3ml nebule NEB ONE (16:45)
[2021-01-03] MEDS ORDERED: predniSONE 20 mg tablet PO ONE (16:50)
[2021-01-03] MEDS ORDERED: prednisone 10mg tablet PO ONE (16:50)
[2021-01-03] MEDS ORDERED: BECL7.3A INH (17:28)
[2021-01-03] MEDS ORDERED: ALBU18HF2 INH (17:28)
== END 2021-01-03 17:53 | disposition home or self-care (01) ==
LOC: ER 16:29
DX: J45.901 Unspecified asthma with (acute) exacerbation (principal); Z20.822 Contact with and (suspected) exposure to COVID-19; R05.9 Cough, unspecified; F17.210 Nicotine dependence, cigarettes, uncomplicated; F12.90 Cannabis use, unspecified, uncomplicated; Z87.11 Personal history of peptic ulcer disease; Z79.899 Other long term (current) drug therapy
CPT/HCPCS: 71045; 87635; 94640; 99284; C9803; J7512; 94760

== ENCOUNTER 2021-02-27 12:36 | Emergency (ER) | payer MEDICAID ==
[~2021-02-27] VITALS: Ht 154.9 cm; Wt 50.0 kg
[~2021-02-27 12:36] MED LIST changes: +ALBU18HF2 INH; +BECL7.3A INH
[2021-02-27] MEDS ORDERED: methylPREDNISolone sod succ 125mg/2ml vial IV ONE (12:45)
[2021-02-27] MEDS ORDERED: albuterol 2.5 MG/3 ML nebule CONTNEB PRN ×2 (12:45→15:10)
[2021-02-27] MEDS ORDERED: magnesium 2GM in 50ml NS 50 ML IV ONE (12:45)
[2021-02-27 12:59] LABS: BASOPHILS # (AUTO) 0.1 X10'3 (0-0.2); BASOPHILS % (AUTO) 0.5 % (0-1); EOSINOPHILS # (AUTO) 0.5 X10'3 (0-0.9); EOSINOPHILS % (AUTO) 4.4 % (0-6); HEMATOCRIT 42.9 % (35.0-45.0); HEMOGLOBIN 14.2 g/dl (12.0-16.0); LYMPHOCYTES # (AUTO) 1.6 X10'3 (1.1-4.8); LYMPHOCYTES % (AUTO) 14.6 % (21-51); MEAN CORPUSCULAR HEMOGLOBIN 30.1 PG (27.0-31.0); MEAN CORPUSCULAR HGB CONC 33.2 g/dL (33.0-36.5); MEAN CORPUSCULAR VOLUME 90.8 FL (78-98); MEAN PLATELET VOLUME 7.4 FL (7.4-10.4); MONOCYTES # (AUTO) 0.5 X10'3 (0-0.9); MONOCYTES % (AUTO) 4.2 % (2-12); NEUTROPHILS # (AUTO) 8.4 X10'3 (1.8-7.7); NEUTROPHILS % (AUTO) 76.3 % (42-75); PLATELET COUNT 302 X10'3 (140-440); RED BLOOD COUNT 4.73 X10'6 (4.20-5.60); RED CELL DISTRIBUTION WIDTH 13.1 % (11.5-14.5)
[2021-02-27 13:11] LABS: ALANINE AMINOTRANSFERASE 27 U/L (12-78); ALBUMIN 4.1 G/DL (3.4-5.0); ALBUMIN/GLOBULIN RATIO 1.2 (1.1-1.5); ALKALINE PHOSPHATASE 59 IU/L (46-116); ANION GAP 10 (8-16); ASPARTATE AMINO TRANSFERASE 22 U/L (10-37); BILIRUBIN,TOTAL 0.1 MG/DL (0.1-1.0); BLOOD UREA NITROGEN 17 MG/DL (7-18); BUN/CREATININE RATIO 22.4 (6.6-38.0); CALCIUM 8.7 MG/DL (8.5-10.1); CHLORIDE 105 MMOL/L (99-107); CREATININE 0.76 MG/DL (0.40-0.90); GLUCOSE 120 MG/DL (70-104); POTASSIUM 4.2 MMOL/L (3.5-5.1); SODIUM 141 MMOL/L (135-145); TOTAL CARBON DIOXIDE 25.6 MMOL/L (24-32); TOTAL PROTEIN 7.5 G/DL (6.4-8.2); eGFR > 90 ML/MIN
[2021-02-27 13:22] VITALS: BP 121/79
[2021-02-27 15:44] LABS: D-DIMER 0.23 MG/L FEU (0-0.50)
[2021-02-27] MEDS ORDERED: PRED20TA PO (17:03)
[2021-02-27] MEDS ORDERED: BECL7.3A INH (17:03)
[2021-02-27] MEDS ORDERED: ALBU18HF2 INH (17:03)
[2021-02-27] MEDS ORDERED: BENZ-38 PO (17:03)
== END 2021-02-27 17:19 | disposition home or self-care (01) ==
LOC: ER 12:36
DX: J45.901 Unspecified asthma with (acute) exacerbation (principal); Z20.822 Contact with and (suspected) exposure to COVID-19; J45.909 Unspecified asthma, uncomplicated; Z87.11 Personal history of peptic ulcer disease; F12.90 Cannabis use, unspecified, uncomplicated; Z79.899 Other long term (current) drug therapy
CPT/HCPCS: 36415; 71045; 80053; 85025; 85379; 87635; 93005; 94640; 94644; 96365; 96375; 99285; C9803; J2930; J3475; 94760; A7015

== ENCOUNTER 2022-03-31 13:28 | Emergency (ER) | payer MEDICAID ==
[~2022-03-31] VITALS: Ht 154.9 cm; Wt 73.9 kg
[2022-03-31 14:13] VITALS: BP 112/74
[2022-03-31] MEDS ORDERED: IBUP-1986 PO ×2 (14:32)
[2022-03-31] MEDS ORDERED: CLIN300C54 PO ×2 (14:32)
[2022-03-31] MEDS ORDERED: ibuprofen tablet 400 MG TABLET PO ONE (14:35)
[2022-03-31] MEDS ORDERED: clindamycin 150mg capsule PO ONE (14:35)
[2022-03-31] MEDS ORDERED: BUPIVAcaine/PF 2.5 mg/ml (0.25%) 30ml vial IJ ONE (14:35)
[2022-03-31] MEDS ORDERED: AMOX-101 PO (15:34)
[2022-03-31] MEDS ORDERED: amoxicillin 250mg capsule PO ONE (15:35)
== END 2022-03-31 15:55 | disposition home or self-care (01) ==
LOC: ER 13:29
DX: K04.7 Periapical abscess without sinus (principal); J45.909 Unspecified asthma, uncomplicated; F12.90 Cannabis use, unspecified, uncomplicated
CPT/HCPCS: 41800; 99284

== ENCOUNTER 2022-11-16 08:27 | Emergency (ER) | payer MEDICAID ==
[~2022-11-16] VITALS: Ht 154.9 cm; Wt 62.3 kg
[2022-11-16 08:29] VITALS: BP 118/80; PULSE 86; RESP 18; TEMP 97.1; O2SAT 97
[2022-11-16] MEDS ORDERED: BUDE10.2 INH (09:15)
[2022-11-16] MEDS ORDERED: LIDOcaine 1% W/epiNEPHrine 1:100,000 20ml vial SQ ONE (09:35)
[2022-11-16] MEDS ORDERED: DYN500C PO (09:56)
== END 2022-11-16 10:13 | disposition home or self-care (01) ==
LOC: ER 08:27
DX: O91.12 Abscess of breast associated with the puerperium (principal)
CPT/HCPCS: 10160; 76642; 99284

== ENCOUNTER 2023-09-25 13:19 | Inpatient (IN) | payer MEDICAID ==
[~2023-09-25] VITALS: Ht 167.6 cm; Wt 86.1 kg
[~2023-09-25 13:19] MED LIST changes: +BUDE10.2 INH
[2023-09-25 14:46] LABS: BASOPHILS # (AUTO) 0.1 X10'3 (0-0.2); BASOPHILS % (AUTO) 0.3 % (0-1); EOSINOPHILS % (AUTO) 0.2 % (0-6); HEMATOCRIT 47.9 % (35.0-45.0); HEMOGLOBIN 15.5 g/dl (12.0-16.0); LYMPHOCYTES # (AUTO) 1.3 X10'3 (1.1-4.8); MEAN CORPUSCULAR HEMOGLOBIN 28.4 PG (27.0-31.0); MEAN CORPUSCULAR HGB CONC 32.3 g/dL (33.0-36.5); MEAN CORPUSCULAR VOLUME 88.1 FL (78-98); MEAN PLATELET VOLUME 7.6 FL (7.4-10.4); MONOCYTES % (AUTO) 4.5 % (2-12); NEUTROPHILS # (AUTO) 19.4 X10'3 (1.8-7.7); PLATELET COUNT 371 X10'3 (140-440); RED BLOOD COUNT 5.44 X10'6 (4.20-5.60); RED CELL DISTRIBUTION WIDTH 14.1 % (11.5-14.5); WHITE BLOOD COUNT 21.8 X10'3 (4.5-11.0)
[2023-09-25 14:55] LABS: ALANINE AMINOTRANSFERASE 11 U/L (12-78); ALBUMIN/GLOBULIN RATIO 0.8 (1.1-1.5); ALKALINE PHOSPHATASE 92 IU/L (46-116); ANION GAP 8 (8-16); ASPARTATE AMINO TRANSFERASE 14 U/L (10-37); BILIRUBIN,TOTAL 0.8 MG/DL (0.1-1.0); BLOOD UREA NITROGEN 9 MG/DL (7-18); BUN/CREATININE RATIO 9.5 (10.0-20.0); CALCIUM 8.6 MG/DL (8.5-10.1); CHLORIDE 100 MMOL/L (99-107); CREATININE 0.95 MG/DL (0.40-0.90); GLUCOSE 111 MG/DL (70-104); POTASSIUM 3.4 MMOL/L (3.5-5.1); SODIUM 135 MMOL/L (135-145); TOTAL CARBON DIOXIDE 27.2 MMOL/L (24-32); TOTAL PROTEIN 6.9 G/DL (6.4-8.2); eCRCL 80 ML/MIN; eGFR 69 ML/MIN
[2023-09-25 15:02] LABS: HCG SERUM QL NEGATIVE
[2023-09-25 15:03] LABS: C-REACTIVE PROTEIN 8.82 MG/DL (0.0-0.5); CREATINE KINASE 100 U/L (26-192); PRO BRAIN NATRIURETIC PEPTIDE 40 PG/ML (0-125)
[2023-09-25 15:04] LABS: D-DIMER 0.52 MG/L FEU (0-0.50)
[2023-09-25 15:08] LABS: APTT 26 SECONDS (22-32); INR 1.1 INR; PROTHROMBIN TIME 11.6 SECONDS (9.0-12.0)
[2023-09-25] MEDS ORDERED: iohexol 350MG/ML 100ml bottle IV ONE (15:22)
[2023-09-25] MEDS: morphine 4 MG/ML inj SYRINge IV ONE (15:49)
[2023-09-25] MEDS: ondansetron/PF 4mg/2ml inj IV ONE (15:49)
[2023-09-25] MEDS ORDERED: vancomycin/NS 1 GM ADD-VANTAGE 250 ML IV ONE (16:40)
[2023-09-25] MEDS ORDERED: CefTRIAXone 1000mg IM Kit (w/lidocaine diluent) IM ONE (16:40)
[2023-09-25] MEDS ORDERED: potassium Cl 40MEQ/1/2NS 520ml 520 ML IV PRN (17:00)
[2023-09-25] MEDS ORDERED: magnesium Cl slow-release 64mg tablet PO PRN (17:00)
[2023-09-25] MEDS ORDERED: HYDROcodone/acetaminophen 5mg/325mg tablet PO PRN (17:00)
[2023-09-25] MEDS ORDERED: potassium Cl 20 mEq SR tablet PO PRN ×2 (17:00)
[2023-09-25] MEDS ORDERED: acetaminophen 325mg tablet PO PRN ×2 (17:00)
[2023-09-25] MEDS ORDERED: magnesium sulf-water 2g/50mL 50 ML IV PRN (17:00)
[2023-09-25] MEDS ORDERED: magnesium sulf-water 4G/100mL 100 ML IV PRN (17:00)
[2023-09-25] MEDS ORDERED: HYDROmorphone/PF 0.2 MG/ML SYRINGE IV PRN (17:00)
[2023-09-25] MEDS ORDERED: BUDE10.2 INH (17:01)
[2023-09-25] MEDS ORDERED: FAMO20TA8 PO (17:01)
[2023-09-25] MEDS ORDERED: SERT-432 PO (17:01)
[2023-09-25] MEDS ORDERED: LORazepam 1 MG tablet PO PRN (17:05)
[2023-09-25] MEDS: nicotine 21mg patch - 24 hr TD SCH (17:05)
[2023-09-25] MEDS: piperacillin/tazo 3.375gm/50ml 50 ML IV STA (17:08)
[2023-09-25] MEDS: clindamycin 300mg/D5W 50mL 50 ML IV STA (17:40)
[2023-09-25] MEDS: piperacillin/tazo 3.375gm/50ml 50 ML IV SCH (17:53)
[2023-09-25] MEDS: normal saline 1000ml 1,000 ML IV SCH (17:55)
[2023-09-25] MEDS: VANCOMYCIN 1,500MG in normal saline IV soln 300 ML IV ONE (18:12)
[2023-09-25] MEDS: HYDROmorphone inj. 0.5 MG/0.5 ML DISP.SYRIN IV PRN (19:43)
[2023-09-25] MEDS: HYDROmorphone 1 mg/ml syringe IV PRN (20:22)
[2023-09-25] MEDS: heparin, porcine 5000 units/ml vial SQ SCH (20:28)
[2023-09-25] MEDS: oxyCODONE/APAP 5-325mg tablet PO PRN (21:09)
[2023-09-25 21:39] LABS: BILIRUBIN,URINE NEGATIVE (Neg); COLOR,URINE YELLOW (Yellow); GLUCOSE, URINE NEGATIVE (Neg); KETONES,URINE NEGATIVE (Neg); LEUKOCYTE ESTERASE ,URINE NEGATIVE (Neg); NITRITES, URINE NEGATIVE (Neg); OCCULT BLOOD,URINE NEGATIVE (Neg); PROTEIN,URINE NEGATIVE (Neg); UROBILINOGEN,URINE 0.2 E.U/dL (0.2-1.0)
[2023-09-25 21:47] LABS: CLARITY,URINE SLIGHTLY CLOUDY (Clear); UA COLLECTION TYPE NON-SPECIFIED
[2023-09-25 21:51] LABS: BACTERIA,URINE FEW /HPF (Neg); MUCUS STRANDS FEW /LPF (Neg); RBC,URINE 0-2 /HPF (0-2); SQUAMOUS EPITHELIAL CELL,UR MODERATE /LPF (FEW)
[2023-09-25 22:20] VITALS: BP 143/68; PULSE 109; RESP 22; TEMP 98.8; O2SAT 96
[2023-09-25 22:30] VITALS: RESP 22; O2SAT 96
[2023-09-25] MEDS: LORazepam 2 mg/ml vial IV PRN (22:50)
[2023-09-25] MEDS: temazepam 15mg capsule PO PRN (22:50)
[2023-09-26] VITALS (26 sets, daily range): BP systolic 100–130; BP diastolic 57–96; PULSE 74–107; RESP 8–20; TEMP 97.6–98.8; O2SAT 94–100
[2023-09-26] MEDS: HYDROcodone/acetaminophen 10/325mg tab PO PRN (04:23)
[2023-09-26] MEDS: HYDROmorphone 1 mg/ml syringe IV PRN (04:23)
[2023-09-26] MEDS: vancomycin/NS 1 GM ADD-VANTAGE 250 ML IV SCH ×2 (04:29→20:20)
[2023-09-26 06:55] LABS: BASOPHILS # (AUTO) 0.1 X10'3 (0-0.2); BASOPHILS % (AUTO) 0.2 % (0-1); EOSINOPHILS # (AUTO) 0.1 X10'3 (0-0.9); EOSINOPHILS % (AUTO) 0.2 % (0-6); HEMATOCRIT 54.7 % (35.0-45.0); HEMOGLOBIN 17.3 g/dl (12.0-16.0); LYMPHOCYTES % (AUTO) 6.5 % (21-51); MEAN CORPUSCULAR HEMOGLOBIN 27.9 PG (27.0-31.0); MEAN CORPUSCULAR HGB CONC 31.6 g/dL (33.0-36.5); MEAN CORPUSCULAR VOLUME 88.1 FL (78-98); MEAN PLATELET VOLUME 8.1 FL (7.4-10.4); MONOCYTES # (AUTO) 1.2 X10'3 (0-0.9); MONOCYTES % (AUTO) 3.8 % (2-12); NEUTROPHILS # (AUTO) 27.4 X10'3 (1.8-7.7); NEUTROPHILS % (AUTO) 89.3 % (42-75); PLATELET COUNT 491 X10'3 (140-440); RED BLOOD COUNT 6.21 X10'6 (4.20-5.60); RED CELL DISTRIBUTION WIDTH 13.9 % (11.5-14.5)
[2023-09-26 06:59] LABS: ALANINE AMINOTRANSFERASE 13 U/L (12-78); ALBUMIN 1.9 G/DL (3.4-5.0); ALBUMIN/GLOBULIN RATIO 0.5 (1.1-1.5); ALKALINE PHOSPHATASE 81 IU/L (46-116); ANION GAP 7 (8-16); ASPARTATE AMINO TRANSFERASE 14 U/L (10-37); BILIRUBIN,TOTAL 0.6 MG/DL (0.1-1.0); BLOOD UREA NITROGEN 11 MG/DL (7-18); BUN/CREATININE RATIO 10.7 (10.0-20.0); C-REACTIVE PROTEIN 19.01 MG/DL (0.0-0.5); CALCIUM 7.5 MG/DL (8.5-10.1); CHLORIDE 100 MMOL/L (99-107); CREATINE KINASE 65 U/L (26-192); CREATININE 1.03 MG/DL (0.40-0.90); GLUCOSE 127 MG/DL (70-104); POTASSIUM 4.4 MMOL/L (3.5-5.1); SODIUM 130 MMOL/L (135-145); TOTAL CARBON DIOXIDE 22.6 MMOL/L (24-32); TOTAL PROTEIN 5.4 G/DL (6.4-8.2); eCRCL 74 ML/MIN; eGFR 63 ML/MIN
[2023-09-26 07:03] LABS: WHITE BLOOD COUNT 30.6 X10'3 (4.5-11.0)
[2023-09-26 07:36] LABS: TOTAL CELLS COUNTED 100
[2023-09-26 07:37] LABS: PLATELET ESTIMATE INCREASED; POIKILOCYTOSIS FEW
[2023-09-26] MEDS: sertraline 25mg tablet PO SCH (08:08)
[2023-09-26] MEDS ORDERED: hydrALAZINE 20mg/ml inj. IV PRN (12:45)
[2023-09-26] MEDS ORDERED: morphine 2 MG/ML inj. syringe IV PRN (12:45)
[2023-09-26] MEDS ORDERED: HYDROmorphone/PF 0.2 MG/ML SYRINGE IV PRN ×2 (12:45)
[2023-09-26] MEDS ORDERED: labetalol 20mg/4ml (5mg/ml) syringe IV PRN (12:45)
[2023-09-26] MEDS ORDERED: meperidine/PF 25mg/ml syringe IV PRN (12:45)
[2023-09-26] MEDS ORDERED: ondansetron/PF 4mg/2ml inj IV PRN (12:45)
[2023-09-26] MEDS ORDERED: morphine 4 MG/ML inj SYRINge IV PRN (12:45)
[2023-09-26] MEDS: ringers solution, lacted 1,000 ML IV SCH (12:45)
[2023-09-26] MEDS: tranexamic acid 100mg/ml inj. ONE (12:49)
[2023-09-26] MEDS ORDERED: sevoflurane 250ml liquid IH ONE (13:15)
[2023-09-26] MEDS: vancomycin 1,000mg inj ONE (13:15)
[2023-09-26] MEDS: BUPIVAcaine 2.5mg/ml inj 50ml vial (contains preservative) ONE (13:15)
[2023-09-26] MEDS ORDERED: midazolam 1 mg/ML 2ml injection ONE (13:22)
[2023-09-26] MEDS ORDERED: fentaNYL /PF 50mcg/ml 5ml ampule ONE (13:22)
[2023-09-26] MEDS ORDERED: propofol inj 20 ML IV ONE (13:45)
[2023-09-26] MEDS ORDERED: ondansetron/PF 4mg/2ml inj ONE (13:45)
[2023-09-26] MEDS ORDERED: 0.9 % SODIUM CHLORIDE 10 ML VIAL ONE (13:46)
[2023-09-26] MEDS ORDERED: ePHEDrine 50MG/ML INJ. ONE (13:46)
[2023-09-26] MEDS ORDERED: LIDOcaine 2% (20mg/ml) 5ml vial ONE (13:46)
[2023-09-26] MEDS ORDERED: dexamethasone sod phosphate 4mg/ml inj. ONE (13:46)
[2023-09-26] MEDS ORDERED: flumazenil 0.1 mg/ml inj. 10mL vial IV ONE (14:17)
[2023-09-26] MEDS: acetaminophen 1,000mg/100ml IV 100 ML IV ONE (15:28)
[2023-09-26] MEDS: ondansetron/PF 4mg/2ml inj IV PRN (19:55)
[2023-09-26] MEDS: proCHLORperazine 10 MG/2 ml inj IV PRN (21:58)
[2023-09-27] VITALS (25 sets, daily range): BP systolic 73–188; BP diastolic 48–99; PULSE 61–108; RESP 10–23; TEMP 99.5; O2SAT 91–100
[2023-09-27] MEDS: ringers solution, lacted 1,000 ML IV SCH (03:30)
[2023-09-27] MEDS: ringers solution, lacted 1,000 ML IV ONE ×6 (03:59→16:48)
[2023-09-27] MEDS: VANCOMYCIN LEVEL IV ONE (08:00)
[2023-09-27] MEDS: clindamycin 600mg/D5W 50ml 50 ML IV SCH (08:28)
[2023-09-27] MEDS: pantoprazole 40MG/NS 100ML BAG 100 ML IV SCH (08:29)
[2023-09-27 08:45] LABS: BASOPHILS # (AUTO) 0.2 X10'3 (0-0.2); BASOPHILS % (AUTO) 0.4 % (0-1); EOSINOPHILS % (AUTO) 0.1 % (0-6); HEMATOCRIT 53.7 % (35.0-45.0); HEMOGLOBIN 17.2 g/dl (12.0-16.0); LYMPHOCYTES # (AUTO) 2.9 X10'3 (1.1-4.8); MEAN CORPUSCULAR HEMOGLOBIN 28.5 PG (27.0-31.0); MEAN CORPUSCULAR HGB CONC 32.1 g/dL (33.0-36.5); MEAN CORPUSCULAR VOLUME 88.7 FL (78-98); MEAN PLATELET VOLUME 8.2 FL (7.4-10.4); MONOCYTES # (AUTO) 2.1 X10'3 (0-0.9); MONOCYTES % (AUTO) 5.2 % (2-12); NEUTROPHILS # (AUTO) 35.7 X10'3 (1.8-7.7); NEUTROPHILS % (AUTO) 87.3 % (42-75); PLATELET COUNT 447 X10'3 (140-440); RED BLOOD COUNT 6.05 X10'6 (4.20-5.60); RED CELL DISTRIBUTION WIDTH 14.2 % (11.5-14.5)
[2023-09-27 09:01] LABS: ALANINE AMINOTRANSFERASE 157 U/L (12-78); ALBUMIN 0.8 G/DL (3.4-5.0); ALBUMIN/GLOBULIN RATIO 0.3 (1.1-1.5); ALKALINE PHOSPHATASE 58 IU/L (46-116); ANION GAP 14 (8-16); ASPARTATE AMINO TRANSFERASE 202 U/L (10-37); BILIRUBIN,TOTAL 0.3 MG/DL (0.1-1.0); BLOOD UREA NITROGEN 25 MG/DL (7-18); BUN/CREATININE RATIO 8.2 (10.0-20.0); C-REACTIVE PROTEIN 11.63 MG/DL (0.0-0.5); CALCIUM 7.5 MG/DL (8.5-10.1); CHLORIDE 96 MMOL/L (99-107); CREATININE 3.05 MG/DL (0.40-0.90); GLUCOSE 133 MG/DL (70-104); POTASSIUM 5.2 MMOL/L (3.5-5.1); SODIUM 124 MMOL/L (135-145); TOTAL PROTEIN 3.2 G/DL (6.4-8.2); WHITE BLOOD COUNT 40.9 X10'3 (4.5-11.0); eCRCL 25 ML/MIN; eGFR 18 ML/MIN
[2023-09-27 09:04] LABS: TOTAL CARBON DIOXIDE 14.5 MMOL/L (24-32); VANCOMYCIN,TROUGH 39.3 ug/mL (10.0-20.0)
[2023-09-27 09:05] LABS: CREATINE KINASE 1238 U/L (26-192)
[2023-09-27 09:19] LABS: PLATELET ESTIMATE INCREASED; TOTAL CELLS COUNTED 100
[2023-09-27] MEDS ORDERED: VITC500T PO (13:31)
[2023-09-27] MEDS ORDERED: VITD400T PO (13:31)
[2023-09-27] MEDS ORDERED: ALBU18HF2 INH (13:31)
[2023-09-27 16:49] LABS: BASOPHILS # (AUTO) 0.1 X10'3 (0-0.2); BASOPHILS % (AUTO) 0.3 % (0-1); EOSINOPHILS % (AUTO) 0 % (0-6); HEMATOCRIT 56.8 % (35.0-45.0); LYMPHOCYTES % (AUTO) 6.4 % (21-51); MEAN CORPUSCULAR HEMOGLOBIN 28.3 PG (27.0-31.0); MEAN CORPUSCULAR VOLUME 88.4 FL (78-98); MEAN PLATELET VOLUME 8.2 FL (7.4-10.4); MONOCYTES % (AUTO) 4.4 % (2-12); NEUTROPHILS # (AUTO) 41.5 X10'3 (1.8-7.7); NEUTROPHILS % (AUTO) 88.9 % (42-75); PLATELET COUNT 370 X10'3 (140-440); RED BLOOD COUNT 6.43 X10'6 (4.20-5.60); RED CELL DISTRIBUTION WIDTH 14.4 % (11.5-14.5)
[2023-09-27 16:56] LABS: HEMOGLOBIN 18.2 g/dl (12.0-16.0); WHITE BLOOD COUNT 46.6 X10'3 (4.5-11.0)
[2023-09-27 17:02] LABS: APTT 39 SECONDS (22-32); INR 1.4 INR; PROTHROMBIN TIME 14.1 SECONDS (9.0-12.0)
[2023-09-27 17:04] LABS: ALANINE AMINOTRANSFERASE 184 U/L (12-78); ALBUMIN 0.9 G/DL (3.4-5.0); ALBUMIN/GLOBULIN RATIO 0.4 (1.1-1.5); ALKALINE PHOSPHATASE 71 IU/L (46-116); ANION GAP 10 (8-16); ASPARTATE AMINO TRANSFERASE 265 U/L (10-37); BILIRUBIN,TOTAL 0.3 MG/DL (0.1-1.0); BLOOD UREA NITROGEN 30 MG/DL (7-18); BUN/CREATININE RATIO 9.3 (10.0-20.0); CALCIUM 7.4 MG/DL (8.5-10.1); CHLORIDE 96 MMOL/L (99-107); CREATININE 3.21 MG/DL (0.40-0.90); GLUCOSE 130 MG/DL (70-104); POTASSIUM 5.5 MMOL/L (3.5-5.1); SODIUM 123 MMOL/L (135-145); TOTAL CARBON DIOXIDE 17.3 MMOL/L (24-32); TOTAL PROTEIN 3.4 G/DL (6.4-8.2); eCRCL 24 ML/MIN; eGFR 17 ML/MIN
[2023-09-27 17:13] LABS: MAGNESIUM 1.5 MG/DL (1.5-2.4); PHOSPHORUS 8.2 MG/DL (2.3-4.5); PRO BRAIN NATRIURETIC PEPTIDE 289 PG/ML (0-125)
[2023-09-27 21:45] LABS: BASOPHILS # (AUTO) 0.1 X10'3 (0-0.2); BASOPHILS % (AUTO) 0.3 % (0-1); EOSINOPHILS % (AUTO) 0 % (0-6); HEMATOCRIT 54.3 % (35.0-45.0); HEMOGLOBIN 17.6 g/dl (12.0-16.0); LYMPHOCYTES # (AUTO) 2.7 X10'3 (1.1-4.8); LYMPHOCYTES % (AUTO) 6.6 % (21-51); MEAN CORPUSCULAR HEMOGLOBIN 28.4 PG (27.0-31.0); MEAN CORPUSCULAR HGB CONC 32.4 g/dL (33.0-36.5); MEAN CORPUSCULAR VOLUME 87.8 FL (78-98); MEAN PLATELET VOLUME 8.1 FL (7.4-10.4); MONOCYTES # (AUTO) 1.8 X10'3 (0-0.9); MONOCYTES % (AUTO) 4.5 % (2-12); NEUTROPHILS # (AUTO) 35.5 X10'3 (1.8-7.7); NEUTROPHILS % (AUTO) 88.6 % (42-75); PLATELET COUNT 345 X10'3 (140-440); RED BLOOD COUNT 6.18 X10'6 (4.20-5.60); RED CELL DISTRIBUTION WIDTH 13.9 % (11.5-14.5)
[2023-09-27 21:49] LABS: WHITE BLOOD COUNT 40.1 X10'3 (4.5-11.0)
[2023-09-27 21:54] LABS: ALANINE AMINOTRANSFERASE 127 U/L (12-78); ALBUMIN 0.7 G/DL (3.4-5.0); ALBUMIN/GLOBULIN RATIO 0.3 (1.1-1.5); ALKALINE PHOSPHATASE 61 IU/L (46-116); ANION GAP 11 (8-16); ASPARTATE AMINO TRANSFERASE 206 U/L (10-37); BILIRUBIN,TOTAL 0.2 MG/DL (0.1-1.0); BLOOD UREA NITROGEN 32 MG/DL (7-18); BUN/CREATININE RATIO 10.3 (10.0-20.0); CALCIUM 6.8 MG/DL (8.5-10.1); CHLORIDE 97 MMOL/L (99-107); GLUCOSE 117 MG/DL (70-104); POTASSIUM 5.4 MMOL/L (3.5-5.1); SODIUM 124 MMOL/L (135-145); TOTAL CARBON DIOXIDE 16.2 MMOL/L (24-32); eCRCL 25 ML/MIN; eGFR 18 ML/MIN
[2023-09-27 22:52] LABS: NUCLEATED RED BLOOD CELLS 1 /100WBC (0-0); PLATELET ESTIMATE NORMAL; TOTAL CELLS COUNTED 100
[2023-09-28] VITALS (26 sets, daily range): BP systolic 102–136; BP diastolic 61–99; PULSE 81–104; RESP 7–22; O2SAT 88–100
[2023-09-28] MEDS: sodium bicarbonate 1meq/ml inj 150 ML in dextrose 5%-water 1,000 ML IV SCH (00:08)
[2023-09-28] MEDS: albumin (Human) 5% 250ml 250 ML IV ONE ×2 (00:59→01:01)
[2023-09-28 02:27] LABS: BASOPHILS # (AUTO) 0.1 X10'3 (0-0.2); BASOPHILS % (AUTO) 0.2 % (0-1); EOSINOPHILS % (AUTO) 0.1 % (0-6); HEMATOCRIT 49.9 % (35.0-45.0); LYMPHOCYTES # (AUTO) 2.1 X10'3 (1.1-4.8); LYMPHOCYTES % (AUTO) 6.3 % (21-51); MEAN CORPUSCULAR HEMOGLOBIN 28.1 PG (27.0-31.0); MEAN CORPUSCULAR HGB CONC 32.1 g/dL (33.0-36.5); MEAN CORPUSCULAR VOLUME 87.4 FL (78-98); MEAN PLATELET VOLUME 7.9 FL (7.4-10.4); MONOCYTES # (AUTO) 2.1 X10'3 (0-0.9); MONOCYTES % (AUTO) 6.4 % (2-12); NEUTROPHILS # (AUTO) 29.2 X10'3 (1.8-7.7); PLATELET COUNT 266 X10'3 (140-440); RED BLOOD COUNT 5.71 X10'6 (4.20-5.60); RED CELL DISTRIBUTION WIDTH 13.6 % (11.5-14.5)
[2023-09-28 02:46] LABS: ALANINE AMINOTRANSFERASE 99 U/L (12-78); ALBUMIN 1.3 G/DL (3.4-5.0); ALBUMIN/GLOBULIN RATIO 0.7 (1.1-1.5); ALKALINE PHOSPHATASE 52 IU/L (46-116); ANION GAP 11 (8-16); ASPARTATE AMINO TRANSFERASE 168 U/L (10-37); BILIRUBIN,TOTAL 0.3 MG/DL (0.1-1.0); BLOOD UREA NITROGEN 35 MG/DL (7-18); BUN/CREATININE RATIO 10.7 (10.0-20.0); CALCIUM 6.5 MG/DL (8.5-10.1); CHLORIDE 95 MMOL/L (99-107); CREATINE KINASE 3285 U/L (26-192); CREATININE 3.26 MG/DL (0.40-0.90); GLUCOSE 169 MG/DL (70-104); POTASSIUM 4.8 MMOL/L (3.5-5.1); SODIUM 125 MMOL/L (135-145); TOTAL CARBON DIOXIDE 19.3 MMOL/L (24-32); TOTAL PROTEIN 3.2 G/DL (6.4-8.2); eCRCL 23 ML/MIN; eGFR 17 ML/MIN
[2023-09-28 03:06] LABS: WHITE BLOOD COUNT 33.5 X10'3 (4.5-11.0)
[2023-09-28 04:18] LABS: TOTAL CELLS COUNTED 100
[2023-09-28 04:19] LABS: PLATELET ESTIMATE NORMAL
[2023-09-28] MEDS ORDERED: albumin (human) 25% 100 ML IV solution IV STA (08:36)
[2023-09-28] MEDS ORDERED: albumin (human) 25% 100 ML IV solution IV ONE ×4 (08:40)
[2023-09-28] MEDS: VANCOMYCIN LEVEL IV ONE (09:19)
[2023-09-28] MEDS: albumin (human) 25% 100ml IV 500 ML IV ONE (09:21)
[2023-09-28 09:44] LABS: VANCOMYCIN,RANDOM 19.6 ug/mL (20.0-30.0)
[2023-09-28 10:24] LABS: SODIUM,URINE RANDOM < 15 MEQ/L; TOTAL PROTEIN,URINE RANDOM 66.2 MG/DL
[2023-09-28] MEDS: albumin (Human) 5% 250ml 250 ML IV SCH (10:51)
[2023-09-28] MEDS: vancomycin inj 500 MG in normal saline 100ml IV soln 100 ML IV SCH (11:03)
[2023-09-28] MEDS: ringers solution, lacted 1,000 ML IV ONE ×2 (11:09→12:20)
[2023-09-28] MEDS: docusate sod 100mg capsule PO SCH (11:22)
[2023-09-28 11:55] LABS: FREE T4 (FREE THYROXINE) 0.7 NG/DL (0.73-1.40); THYROID STIMULATING HORMONE 8.6 ulU/ml (0.34-4.50)
[2023-09-28] MEDS: lactose-reduced food (Ensure Enlive) - 237ml bottle PO SCH (13:00)
[2023-09-28] MEDS: albuterol 2.5 MG/3 ML nebule NEB PRN ×2 (13:05→13:55)
[2023-09-28] MEDS: HYDROmorphone 1 mg/ml syringe IV ONE (13:22)
[2023-09-28 13:25] LABS: UA EOSINOPHILS RARE EOS /HPF
[2023-09-28] MEDS: budesonide 0.5mg/2ml UD nebule IH PRN (13:54)
[2023-09-28 17:22] LABS: ALANINE AMINOTRANSFERASE 53 U/L (12-78); ALBUMIN 2.4 G/DL (3.4-5.0); ALBUMIN/GLOBULIN RATIO 2.4 (1.1-1.5); ALKALINE PHOSPHATASE 113 IU/L (46-116); ANION GAP 5 (8-16); ASPARTATE AMINO TRANSFERASE 118 U/L (10-37); BILIRUBIN,TOTAL 0.4 MG/DL (0.1-1.0); BLOOD UREA NITROGEN 37 MG/DL (7-18); BUN/CREATININE RATIO 11.3 (10.0-20.0); CHLORIDE 92 MMOL/L (99-107); CREATININE 3.28 MG/DL (0.40-0.90); GLUCOSE 172 MG/DL (70-104); POTASSIUM 4.2 MMOL/L (3.5-5.1); SODIUM 127 MMOL/L (135-145); TOTAL CARBON DIOXIDE 30.3 MMOL/L (24-32); TOTAL PROTEIN 3.4 G/DL (6.4-8.2); eCRCL 23 ML/MIN; eGFR 16 ML/MIN
[2023-09-28 18:05] LABS: BASOPHILS # (AUTO) 0.1 X10'3 (0-0.2); BASOPHILS % (AUTO) 0.5 % (0-1); EOSINOPHILS # (AUTO) 0.1 X10'3 (0-0.9); HEMOGLOBIN 9.5 g/dl (12.0-16.0); LYMPHOCYTES # (AUTO) 1.2 X10'3 (1.1-4.8); LYMPHOCYTES % (AUTO) 9.9 % (21-51); MEAN CORPUSCULAR HEMOGLOBIN 28.5 PG (27.0-31.0); MEAN PLATELET VOLUME 7.2 FL (7.4-10.4); MONOCYTES # (AUTO) 0.6 X10'3 (0-0.9)
[2023-09-28 18:06] LABS: EOSINOPHILS % (AUTO) 0.4 % (0-6); HEMATOCRIT 28.4 % (35.0-45.0); MEAN CORPUSCULAR HGB CONC 33.5 g/dL (33.0-36.5); MEAN CORPUSCULAR VOLUME 85.2 FL (78-98); MONOCYTES % (AUTO) 4.9 % (2-12); NEUTROPHILS # (AUTO) 10.1 X10'3 (1.8-7.7); NEUTROPHILS % (AUTO) 84.3 % (42-75); PLATELET COUNT 117 X10'3 (140-440); RED BLOOD COUNT 3.34 X10'6 (4.20-5.60); RED CELL DISTRIBUTION WIDTH 13.6 % (11.5-14.5); WHITE BLOOD COUNT 11.9 X10'3 (4.5-11.0)
[2023-09-28 18:23] LABS: CALCIUM 5.8 MG/DL (8.5-10.1)
[2023-09-28 18:24] LABS: CREATINE KINASE 3299 U/L (26-192)
[2023-09-28] MEDS: CALCIUM GLUC 1gm/50ml NACL,iso 50 ML IV ONE (20:12)
[2023-09-28] MEDS: budesonide 0.5mg/2ml UD nebule IH SCH (20:44)
[2023-09-28 22:04] LABS: BASOPHILS # (AUTO) 0.1 X10'3 (0-0.2); BASOPHILS % (AUTO) 0.5 % (0-1); EOSINOPHILS % (AUTO) 0.4 % (0-6); HEMATOCRIT 29.9 % (35.0-45.0); HEMOGLOBIN 9.9 g/dl (12.0-16.0); LYMPHOCYTES # (AUTO) 1.2 X10'3 (1.1-4.8); LYMPHOCYTES % (AUTO) 8.8 % (21-51); MEAN CORPUSCULAR HEMOGLOBIN 28.3 PG (27.0-31.0); MEAN CORPUSCULAR HGB CONC 33.2 g/dL (33.0-36.5); MEAN CORPUSCULAR VOLUME 85.3 FL (78-98); MONOCYTES # (AUTO) 0.7 X10'3 (0-0.9); MONOCYTES % (AUTO) 4.8 % (2-12); NEUTROPHILS # (AUTO) 11.8 X10'3 (1.8-7.7); NEUTROPHILS % (AUTO) 85.5 % (42-75); PLATELET COUNT 132 X10'3 (140-440); RED BLOOD COUNT 3.51 X10'6 (4.20-5.60); RED CELL DISTRIBUTION WIDTH 13.4 % (11.5-14.5); WHITE BLOOD COUNT 13.8 X10'3 (4.5-11.0)
[2023-09-28 22:46] LABS: INR 1.3 INR; PROTHROMBIN TIME 13.2 SECONDS (9.0-12.0)
[2023-09-28 22:49] LABS: APTT 125 SECONDS (22-32)
[2023-09-29] VITALS (37 sets, daily range): BP systolic 85–144; BP diastolic 47–88; PULSE 80–113; RESP 7–24; TEMP 97.8–99.2; O2SAT 93–99
[2023-09-29 02:31] LABS: BASOPHILS # (AUTO) 0.1 X10'3 (0-0.2); BASOPHILS % (AUTO) 0.3 % (0-1); EOSINOPHILS % (AUTO) 0.3 % (0-6); HEMATOCRIT 29.4 % (35.0-45.0); HEMOGLOBIN 9.8 g/dl (12.0-16.0); LYMPHOCYTES # (AUTO) 1.2 X10'3 (1.1-4.8); MEAN CORPUSCULAR HEMOGLOBIN 28.3 PG (27.0-31.0); MEAN CORPUSCULAR HGB CONC 33.3 g/dL (33.0-36.5); MEAN CORPUSCULAR VOLUME 84.9 FL (78-98); MEAN PLATELET VOLUME 7.2 FL (7.4-10.4); MONOCYTES # (AUTO) 0.8 X10'3 (0-0.9); MONOCYTES % (AUTO) 5.3 % (2-12); NEUTROPHILS # (AUTO) 13.3 X10'3 (1.8-7.7); NEUTROPHILS % (AUTO) 86.1 % (42-75); PLATELET COUNT 139 X10'3 (140-440); RED BLOOD COUNT 3.46 X10'6 (4.20-5.60); RED CELL DISTRIBUTION WIDTH 13.4 % (11.5-14.5); WHITE BLOOD COUNT 15.5 X10'3 (4.5-11.0)
[2023-09-29 02:52] LABS: ALANINE AMINOTRANSFERASE 52 U/L (12-78); ALBUMIN 1.8 G/DL (3.4-5.0); ALBUMIN/GLOBULIN RATIO 1.5 (1.1-1.5); ALKALINE PHOSPHATASE 77 IU/L (46-116); ANION GAP 4 (8-16); ASPARTATE AMINO TRANSFERASE 144 U/L (10-37); BILIRUBIN,TOTAL 0.4 MG/DL (0.1-1.0); BLOOD UREA NITROGEN 36 MG/DL (7-18); BUN/CREATININE RATIO 11.2 (10.0-20.0); C-REACTIVE PROTEIN 3.65 MG/DL (0.0-0.5); CHLORIDE 91 MMOL/L (99-107); CREATININE 3.21 MG/DL (0.40-0.90); GLUCOSE 133 MG/DL (70-104); POTASSIUM 4.1 MMOL/L (3.5-5.1); SODIUM 126 MMOL/L (135-145); TOTAL CARBON DIOXIDE 30.8 MMOL/L (24-32); eCRCL 24 ML/MIN; eGFR 17 ML/MIN
[2023-09-29 02:54] LABS: CREATINE KINASE 4500 U/L (26-192)
[2023-09-29 02:56] LABS: CALCIUM 5.6 MG/DL (8.5-10.1)
[2023-09-29 04:11] LABS: PLATELET ESTIMATE NORMAL; TOTAL CELLS COUNTED 100
[2023-09-29] MEDS: nicotine 14mg patch - 24hr TD SCH (08:00)
[2023-09-29] MEDS ORDERED: calcium gluconate inj. 1 GM in NS 100ml IV soln (110 ML) IV PRN (09:15)
[2023-09-29] MEDS: ringers solution, lacted 1,000 ML IV SCH (09:39)
[2023-09-29] MEDS: HYDROmorphone 1 mg/ml syringe IV PRN (09:59)
[2023-09-29] MEDS: albumin (human) 25% 100ml IV 400 ML IV ONE (10:16)
[2023-09-29] MEDS: ringers solution, lacted 2,000 ML IV ONE (11:44)
[2023-09-29] MEDS: CALCIUM GLUC 1gm/50ml NACL,iso 50 ML IV PRN (12:29)
[2023-09-29 13:14] LABS: BASOPHILS % (AUTO) 0.1 % (0-1); EOSINOPHILS % (AUTO) 0.5 % (0-6); LYMPHOCYTES # (AUTO) 0.6 X10'3 (1.1-4.8); LYMPHOCYTES % (AUTO) 8.2 % (21-51); MEAN CORPUSCULAR HEMOGLOBIN 28.7 PG (27.0-31.0); MEAN CORPUSCULAR HGB CONC 33.8 g/dL (33.0-36.5); MEAN CORPUSCULAR VOLUME 84.9 FL (78-98); MEAN PLATELET VOLUME 6.5 FL (7.4-10.4); MONOCYTES # (AUTO) 0.5 X10'3 (0-0.9); MONOCYTES % (AUTO) 6.1 % (2-12); NEUTROPHILS # (AUTO) 6.6 X10'3 (1.8-7.7); NEUTROPHILS % (AUTO) 85.1 % (42-75); PLATELET COUNT 60 X10'3 (140-440); RED BLOOD COUNT 1.79 X10'6 (4.20-5.60); RED CELL DISTRIBUTION WIDTH 13.3 % (11.5-14.5); WHITE BLOOD COUNT 7.8 X10'3 (4.5-11.0)
[2023-09-29 13:16] LABS: HEMOGLOBIN 5.1 g/dl (12.0-16.0)
[2023-09-29 13:17] LABS: HEMATOCRIT 15.2 % (35.0-45.0)
[2023-09-29] MEDS: calcium acetate 667mg (PhosLO) capsule PO SCH (13:44)
[2023-09-29 13:52] LABS: BASOPHILS % (AUTO) 0.1 % (0-1); EOSINOPHILS % (AUTO) 0.5 % (0-6); LYMPHOCYTES # (AUTO) 0.8 X10'3 (1.1-4.8); LYMPHOCYTES % (AUTO) 9.4 % (21-51); MEAN CORPUSCULAR HEMOGLOBIN 28.7 PG (27.0-31.0); MEAN CORPUSCULAR HGB CONC 33.8 g/dL (33.0-36.5); MEAN CORPUSCULAR VOLUME 84.9 FL (78-98); MEAN PLATELET VOLUME 6.8 FL (7.4-10.4); MONOCYTES # (AUTO) 0.5 X10'3 (0-0.9); MONOCYTES % (AUTO) 6.1 % (2-12); NEUTROPHILS # (AUTO) 7.3 X10'3 (1.8-7.7); NEUTROPHILS % (AUTO) 83.9 % (42-75); PLATELET COUNT 59 X10'3 (140-440); RED BLOOD COUNT 1.87 X10'6 (4.20-5.60); RED CELL DISTRIBUTION WIDTH 13.4 % (11.5-14.5); WHITE BLOOD COUNT 8.7 X10'3 (4.5-11.0)
[2023-09-29 13:57] LABS: HEMATOCRIT 15.9 % (35.0-45.0); HEMOGLOBIN 5.4 g/dl (12.0-16.0)
[2023-09-29 14:05] LABS: HYPOCHROMASIA 1+; PLATELET ESTIMATE DECREASED; STOMATOCYTES 1+
[2023-09-29 14:06] LABS: POLYCHROMASIA FEW
[2023-09-29] MEDS ORDERED: cefepime 1GM/NS ADD-VANTAGE 100 ML IV SCH (16:00)
[2023-09-29 18:34] LABS: ALANINE AMINOTRANSFERASE 46 U/L (12-78); ALBUMIN 2.3 G/DL (3.4-5.0); ALBUMIN/GLOBULIN RATIO 2.3 (1.1-1.5); ALKALINE PHOSPHATASE 69 IU/L (46-116); ANION GAP 3 (8-16); ASPARTATE AMINO TRANSFERASE 133 U/L (10-37); BILIRUBIN,TOTAL 0.7 MG/DL (0.1-1.0); BLOOD UREA NITROGEN 37 MG/DL (7-18); BUN/CREATININE RATIO 11.6 (10.0-20.0); CHLORIDE 91 MMOL/L (99-107); GLUCOSE 98 MG/DL (70-104); POTASSIUM 4.7 MMOL/L (3.5-5.1); SODIUM 125 MMOL/L (135-145); TOTAL PROTEIN 3.3 G/DL (6.4-8.2); eCRCL 24 ML/MIN; eGFR 17 ML/MIN
[2023-09-29 18:36] LABS: CALCIUM 5.7 MG/DL (8.5-10.1)
[2023-09-29] MEDS: CALCIUM GLUC 1gm/50ml NACL,iso 50 ML IV ONE (21:36)
[2023-09-29] MEDS: acetaminophen 1,000mg/100ml IV 100 ML IV ONE (21:43)
[2023-09-29 23:49] LABS: BASOPHILS # (AUTO) 0.1 X10'3 (0-0.2); BASOPHILS % (AUTO) 0.3 % (0-1); EOSINOPHILS # (AUTO) 0.2 X10'3 (0-0.9); EOSINOPHILS % (AUTO) 0.6 % (0-6); HEMATOCRIT 41.8 % (35.0-45.0); HEMOGLOBIN 13.9 g/dl (12.0-16.0); LYMPHOCYTES # (AUTO) 1.6 X10'3 (1.1-4.8); LYMPHOCYTES % (AUTO) 5.9 % (21-51); MEAN CORPUSCULAR HEMOGLOBIN 28.4 PG (27.0-31.0); MEAN CORPUSCULAR HGB CONC 33.4 g/dL (33.0-36.5); MEAN CORPUSCULAR VOLUME 85.1 FL (78-98); MEAN PLATELET VOLUME 7.1 FL (7.4-10.4); MONOCYTES # (AUTO) 1.6 X10'3 (0-0.9); MONOCYTES % (AUTO) 5.6 % (2-12); NEUTROPHILS # (AUTO) 24.4 X10'3 (1.8-7.7); NEUTROPHILS % (AUTO) 87.6 % (42-75); PLATELET COUNT 78 X10'3 (140-440); RED CELL DISTRIBUTION WIDTH 14.3 % (11.5-14.5)
[2023-09-29 23:56] LABS: D-DIMER 0.54 MG/L FEU (0-0.50); FIBRINOGEN 220 MG/DL (177-424); INR 1.2 INR; PROTHROMBIN TIME 12.2 SECONDS (9.0-12.0)
[2023-09-29 23:57] LABS: WHITE BLOOD COUNT 27.9 X10'3 (4.5-11.0)
[2023-09-30] VITALS (30 sets, daily range): BP systolic 95–136; BP diastolic 49–94; PULSE 72–110; RESP 8–21; O2SAT 12–98
[2023-09-30 00:11] LABS: APTT 74 SECONDS (22-32)
[2023-09-30 00:36] LABS: PLATELET ESTIMATE DECREASED; TOTAL CELLS COUNTED 100
[2023-09-30 00:37] LABS: SMUDGE CELLS FEW
[2023-09-30 01:03] LABS: PLATELET COUNT 78 X10'3 (140-440)
[2023-09-30] MEDS ORDERED: haloperidol lactate 5mg/ml inj IM PRN (01:45)
[2023-09-30] MEDS: dexmedetomidin/NS 400mcg/100ml 100 ML IV PRN (02:17)
[2023-09-30 05:00] LABS: BASOPHILS # (AUTO) 0.1 X10'3 (0-0.2); EOSINOPHILS # (AUTO) 0.1 X10'3 (0-0.9); HEMOGLOBIN 13.8 g/dl (12.0-16.0); MONOCYTES # (AUTO) 1.2 X10'3 (0-0.9)
[2023-09-30 05:02] LABS: BASOPHILS % (AUTO) 0.3 % (0-1); EOSINOPHILS % (AUTO) 0.3 % (0-6); HEMATOCRIT 41.3 % (35.0-45.0); LYMPHOCYTES # (AUTO) 1.2 X10'3 (1.1-4.8); LYMPHOCYTES % (AUTO) 4.2 % (21-51); MEAN CORPUSCULAR HEMOGLOBIN 28.4 PG (27.0-31.0); MEAN CORPUSCULAR HGB CONC 33.4 g/dL (33.0-36.5); MEAN CORPUSCULAR VOLUME 85.2 FL (78-98); MEAN PLATELET VOLUME 7.1 FL (7.4-10.4); NEUTROPHILS # (AUTO) 26.7 X10'3 (1.8-7.7); NEUTROPHILS % (AUTO) 91.2 % (42-75); PLATELET COUNT 76 X10'3 (140-440); RED BLOOD COUNT 4.85 X10'6 (4.20-5.60); RED CELL DISTRIBUTION WIDTH 14.3 % (11.5-14.5)
[2023-09-30 05:09] LABS: WHITE BLOOD COUNT 29.3 X10'3 (4.5-11.0)
[2023-09-30 05:24] LABS: ALANINE AMINOTRANSFERASE 58 U/L (12-78); ALBUMIN/GLOBULIN RATIO 1.4 (1.1-1.5); ALKALINE PHOSPHATASE 91 IU/L (46-116); ANION GAP 7 (8-16); ASPARTATE AMINO TRANSFERASE 169 U/L (10-37); BILIRUBIN,TOTAL 0.8 MG/DL (0.1-1.0); BLOOD UREA NITROGEN 37 MG/DL (7-18); BUN/CREATININE RATIO 11.9 (10.0-20.0); CALCIUM 6.1 MG/DL (8.5-10.1); CHLORIDE 91 MMOL/L (99-107); CREATININE 3.11 MG/DL (0.40-0.90); GLUCOSE 103 MG/DL (70-104); SODIUM 125 MMOL/L (135-145); TOTAL CARBON DIOXIDE 27.2 MMOL/L (24-32); TOTAL PROTEIN 3.4 G/DL (6.4-8.2); eCRCL 25 ML/MIN; eGFR 17 ML/MIN
[2023-09-30 05:25] LABS: CREATINE KINASE 5760 U/L (26-192)
[2023-09-30 06:36] LABS: TOTAL CELLS COUNTED 100
[2023-09-30 06:39] LABS: PLATELET ESTIMATE DECREASED
[2023-09-30 08:43] LABS: MAGNESIUM 1.4 MG/DL (1.5-2.4); PHOSPHORUS 6.4 MG/DL (2.3-4.5)
[2023-09-30] MEDS: furosemide 20 MG/2 ML vial IV ONE (09:15)
[2023-09-30] MEDS: cefepime inj. 0.5 GM in normal saline 100ml IV soln 105 ML IV SCH (13:10)
[2023-09-30] MEDS ORDERED: docusate sodium 100mg/10ml UD cup PO SCH (14:32)
[2023-09-30] MEDS ORDERED: docusate sodium 100mg/10ml UD cup CORPAK SCH (14:32)
[2023-09-30] MEDS ORDERED: acetaminophen 325mg/10.15ml oral unit dose solution CORPAK PRN ×2 (14:33)
[2023-09-30 14:36] LABS: URIC ACID 4.9 MG/DL (2.5-6.2)
[2023-09-30] MEDS: furosemide 10 MG/1 ML 10ml inj IV ONE (15:15)
[2023-09-30] MEDS: HYDROmorphone inj. 0.5 MG/0.5 ML DISP.SYRIN IV PRN (15:34)
[2023-09-30] MEDS: lactose-reduced food (Ensure Enlive) - 237ml bottle CORPAK SCH (18:00)
[2023-09-30] MEDS ORDERED: metolazone 2.5mg tablet PO SCH ×2 (18:06→18:07)
[2023-09-30] MEDS: albumin (human) 25% 100ml IV 100 ML IV SCH (19:09)
[2023-09-30] MEDS: furosemide 10 MG/1 ML 10ml inj IV SCH (19:11)
[2023-09-30] MEDS: docusate sod 100mg capsule PO SCH (19:12)
[2023-09-30] MEDS: metolazone 2.5mg tablet CORPAK SCH (19:12)
[2023-09-30] MEDS: temazepam 15mg capsule CORPAK PRN (19:24)
[2023-09-30] MEDS ORDERED: furosemide 10 MG/1 ML 10ml inj IV SCH (21:00)
[2023-09-30] MEDS: calcium acetate 667mg (PhosLO) capsule CORPAK SCH (21:30)
[2023-09-30] MEDS: oxyCODONE/APAP 5-325mg tablet CORPAK PRN (22:08)
[2023-10-01] VITALS (30 sets, daily range): BP systolic 88–132; BP diastolic 37–93; PULSE 63–104; RESP 11–26; O2SAT 94–100
[2023-10-01 02:56] LABS: BASOPHILS % (AUTO) 0.1 % (0-1); EOSINOPHILS # (AUTO) 0.1 X10'3 (0-0.9); EOSINOPHILS % (AUTO) 0.2 % (0-6); HEMATOCRIT 39.1 % (35.0-45.0); HEMOGLOBIN 13.3 g/dl (12.0-16.0); LYMPHOCYTES # (AUTO) 1.1 X10'3 (1.1-4.8); MEAN CORPUSCULAR HEMOGLOBIN 28.9 PG (27.0-31.0); MEAN CORPUSCULAR HGB CONC 34.2 g/dL (33.0-36.5); MEAN CORPUSCULAR VOLUME 84.5 FL (78-98); MONOCYTES # (AUTO) 1.4 X10'3 (0-0.9); MONOCYTES % (AUTO) 5.2 % (2-12); NEUTROPHILS # (AUTO) 24.4 X10'3 (1.8-7.7); NEUTROPHILS % (AUTO) 90.5 % (42-75); PLATELET COUNT 66 X10'3 (140-440); RED BLOOD COUNT 4.62 X10'6 (4.20-5.60); RED CELL DISTRIBUTION WIDTH 14.2 % (11.5-14.5)
[2023-10-01 03:15] LABS: ALANINE AMINOTRANSFERASE 81 U/L (12-78); ALKALINE PHOSPHATASE 130 IU/L (46-116); ANION GAP 4 (8-16); ASPARTATE AMINO TRANSFERASE 242 U/L (10-37); BILIRUBIN,TOTAL 0.5 MG/DL (0.1-1.0); BLOOD UREA NITROGEN 40 MG/DL (7-18); CALCIUM 6.3 MG/DL (8.5-10.1); CHLORIDE 90 MMOL/L (99-107); CREATININE 3.07 MG/DL (0.40-0.90); GLUCOSE 99 MG/DL (70-104); MAGNESIUM 1.5 MG/DL (1.5-2.4); PHOSPHORUS 7.1 MG/DL (2.3-4.5); POTASSIUM 4.6 MMOL/L (3.5-5.1); PREALBUMIN 6.9 MG/DL (19-36); SODIUM 123 MMOL/L (135-145); TOTAL CARBON DIOXIDE 28.8 MMOL/L (24-32); eCRCL 25 ML/MIN; eGFR 18 ML/MIN
[2023-10-01 03:59] LABS: PLATELET ESTIMATE DECREASED; TOTAL CELLS COUNTED 100
[2023-10-01] MEDS ORDERED: docusate sodium 100mg/10ml UD cup PO SCH (07:35)
[2023-10-01] MEDS: NORepinephrine 8mg/ 250ml NS 250 ML IV SCH (07:39)
[2023-10-01] MEDS: NORepinephrine 8mg/ 250ml NS 250 ML IV ONE (07:41)
[2023-10-01 08:56] LABS: ABG BASE EXCESS -0.3 mmol/L (-2.0-2.0); ABG HCO3 22.5 mmol/L (22.0-26.0); ABG OXYGEN SATURATION 93.2 % (92-98.5); ABG PCO2 (T) 30.2 mmHg (32.0-45.0); ABG PH (T) 7.486 (7.350-7.450); ABG PO2 (T) 64.3 mmHg (75.0-100.0); ALLEN'S TEST Yes; FCOHb 0.8 % (0.5-1.5); FHHb 6.7 % (0.0-5.0); FMetHb 0.3 % (0.0-1.5); FO2Hb 92.2 % (94-97); TOTAL HEMOGLOBIN 13.6 G/dl (12.0-16.0)
[2023-10-01] MEDS: docusate sodium 100mg/10ml UD cup CORPAK SCH (09:22)
[2023-10-01] MEDS: sertraline 25mg tablet CORPAK SCH (09:22)
[2023-10-01] MEDS ORDERED: VANCOMYCIN LEVEL IV ONE (09:30)
[2023-10-01] MEDS: metoclopramide 5 mg/ml inj IV ONE (11:16)
[2023-10-01] MEDS: vancomycin/NS 1 GM ADD-VANTAGE 250 ML IV SCH (12:39)
[2023-10-01] MEDS: lactose-reduced food (Ensure Enlive) - 237ml bottle PO SCH (18:00)
[2023-10-01] MEDS: HYDROcodone/acetaminophen 7.5MG/325MG per 15ml UD CUP CORPAK PRN (20:38)
[2023-10-02] VITALS (27 sets, daily range): BP systolic 103–137; BP diastolic 69–93; PULSE 77–105; RESP 12–20; O2SAT 90–98
[2023-10-02 03:18] LABS: BASOPHILS # (AUTO) 0.1 X10'3 (0-0.2); BASOPHILS % (AUTO) 0.3 % (0-1); EOSINOPHILS # (AUTO) 0.1 X10'3 (0-0.9); EOSINOPHILS % (AUTO) 0.2 % (0-6); HEMATOCRIT 36.6 % (35.0-45.0); HEMOGLOBIN 12.4 g/dl (12.0-16.0); LYMPHOCYTES # (AUTO) 1.2 X10'3 (1.1-4.8); MEAN CORPUSCULAR HEMOGLOBIN 28.8 PG (27.0-31.0); MEAN CORPUSCULAR HGB CONC 33.8 g/dL (33.0-36.5); MEAN CORPUSCULAR VOLUME 85.1 FL (78-98); MONOCYTES % (AUTO) 4.2 % (2-12); NEUTROPHILS # (AUTO) 20.9 X10'3 (1.8-7.7); NEUTROPHILS % (AUTO) 90.3 % (42-75); PLATELET COUNT 66 X10'3 (140-440); RED CELL DISTRIBUTION WIDTH 14.6 % (11.5-14.5); WHITE BLOOD COUNT 23.1 X10'3 (4.5-11.0)
[2023-10-02 03:33] LABS: ALANINE AMINOTRANSFERASE 93 U/L (12-78); ALBUMIN 2.5 G/DL (3.4-5.0); ALBUMIN/GLOBULIN RATIO 1.2 (1.1-1.5); ALKALINE PHOSPHATASE 173 IU/L (46-116); ANION GAP 7 (8-16); ASPARTATE AMINO TRANSFERASE 252 U/L (10-37); BILIRUBIN,TOTAL 0.4 MG/DL (0.1-1.0); BLOOD UREA NITROGEN 46 MG/DL (7-18); BUN/CREATININE RATIO 14.3 (10.0-20.0); CALCIUM 6.5 MG/DL (8.5-10.1); CHLORIDE 89 MMOL/L (99-107); CREATININE 3.22 MG/DL (0.40-0.90); GLUCOSE 145 MG/DL (70-104); MAGNESIUM 1.5 MG/DL (1.5-2.4); PHOSPHORUS 5.8 MG/DL (2.3-4.5); POTASSIUM 3.4 MMOL/L (3.5-5.1); SODIUM 126 MMOL/L (135-145); TOTAL CARBON DIOXIDE 30.5 MMOL/L (24-32); TOTAL PROTEIN 4.6 G/DL (6.4-8.2); eCRCL 24 ML/MIN; eGFR 17 ML/MIN
[2023-10-02 04:28] LABS: PLATELET ESTIMATE DECREASED; TOTAL CELLS COUNTED 100
[2023-10-02 09:05] LABS: CREATINE KINASE 8516 U/L (26-192)
[2023-10-02 12:41] LABS: C DIFF SPECIMEN=DIARRHEA? ACCEPTABLE; C DIFFICILE TOXINS A&B NEGATIVE (Neg)
[2023-10-02] MEDS: VANCOMYCIN 750MG IV in NS 250 ML IV SCH (12:55)
[2023-10-02 14:43] LABS: PHOSPHORUS 5.2 MG/DL (2.3-4.5); POTASSIUM 3.2 MMOL/L (3.5-5.1)
[2023-10-02] MEDS: clindamycin 150mg capsule PO SCH (15:40)
[2023-10-02] MEDS ORDERED: potassium Cl 40MEQ/270ML bag 270 ML IV PRN (17:00)
[2023-10-02] MEDS: K, MAG and/or Phos replacement - Verify level? MC SCH (17:40)
[2023-10-02] MEDS: POTASSIUM BICARBONATE/CIT AC 10 MEQ TABLET.EFF PO PRN (20:59)
[2023-10-02] MEDS: VANCOMYCIN 125 MG/5 ML oral SOLN.RECON 5mL UD syringe (FIRVANQ) CORPAK SCH (21:09)
[2023-10-02] MEDS: metroNIDAZOLE-Flagyl 500mg/NS 100 ML IV SCH (23:34)
[2023-10-03] VITALS (28 sets, daily range): BP systolic 109–148; BP diastolic 73–88; PULSE 71–92; RESP 7–18; O2SAT 93–100
[2023-10-03 04:02] LABS: ALANINE AMINOTRANSFERASE 76 U/L (12-78); ALBUMIN/GLOBULIN RATIO 1.3 (1.1-1.5); ALKALINE PHOSPHATASE 208 IU/L (46-116); ANION GAP 2 (8-16); ASPARTATE AMINO TRANSFERASE 181 U/L (10-37); BASOPHILS # (AUTO) 0.1 X10'3 (0-0.2); BASOPHILS % (AUTO) 0.3 % (0-1); BILIRUBIN,TOTAL 0.4 MG/DL (0.1-1.0); BLOOD UREA NITROGEN 54 MG/DL (7-18); BUN/CREATININE RATIO 18.9 (10.0-20.0); C-REACTIVE PROTEIN 11.51 MG/DL (0.0-0.5); CALCIUM 7.1 MG/DL (8.5-10.1); CHLORIDE 87 MMOL/L (99-107); CREATININE 2.85 MG/DL (0.40-0.90); EOSINOPHILS # (AUTO) 0.1 X10'3 (0-0.9); EOSINOPHILS % (AUTO) 0.5 % (0-6); GLUCOSE 146 MG/DL (70-104); HEMATOCRIT 33.9 % (35.0-45.0); HEMOGLOBIN 11.5 g/dl (12.0-16.0); LYMPHOCYTES # (AUTO) 1.1 X10'3 (1.1-4.8); LYMPHOCYTES % (AUTO) 6.1 % (21-51); MEAN CORPUSCULAR HEMOGLOBIN 28.9 PG (27.0-31.0); MEAN CORPUSCULAR HGB CONC 33.9 g/dL (33.0-36.5); MEAN CORPUSCULAR VOLUME 85.3 FL (78-98); MEAN PLATELET VOLUME 7.4 FL (7.4-10.4); MONOCYTES # (AUTO) 0.8 X10'3 (0-0.9); MONOCYTES % (AUTO) 4.7 % (2-12); NEUTROPHILS # (AUTO) 15.7 X10'3 (1.8-7.7); NEUTROPHILS % (AUTO) 88.4 % (42-75); PHOSPHORUS 4.6 MG/DL (2.3-4.5); PLATELET COUNT 67 X10'3 (140-440); RED BLOOD COUNT 3.97 X10'6 (4.20-5.60); RED CELL DISTRIBUTION WIDTH 14.5 % (11.5-14.5); SODIUM 126 MMOL/L (135-145); TOTAL CARBON DIOXIDE 36.8 MMOL/L (24-32); TOTAL PROTEIN 5.4 G/DL (6.4-8.2); WHITE BLOOD COUNT 17.7 X10'3 (4.5-11.0); eCRCL 27 ML/MIN; eGFR 19 ML/MIN
[2023-10-03 04:25] LABS: POTASSIUM 2.9 MMOL/L (3.5-5.1)
[2023-10-03 05:50] LABS: NUCLEATED RED BLOOD CELLS 1 /100WBC (0-0); PLATELET ESTIMATE DECREASED; TOTAL CELLS COUNTED 100
[2023-10-03] MEDS: potassium Cl 40MEQ/270ML bag 270 ML IV PRN (07:31)
[2023-10-03 09:30] LABS: C DIFF ANTIGEN SEE COMMENTS (NEGATIVE)
[2023-10-03 20:09] LABS: ANION GAP 4 (8-16); CHLORIDE 88 MMOL/L (99-107); POTASSIUM 3.2 MMOL/L (3.5-5.1); SODIUM 129 MMOL/L (135-145); TOTAL CARBON DIOXIDE 37.4 MMOL/L (24-32)
[2023-10-03] MEDS: linezolid 600mg/300ml PREMIX 300 ML IV SCH (21:19)
[2023-10-03] MEDS: potassium Cl 20 mEq SR tablet PO PRN (23:31)
[2023-10-04] VITALS (28 sets, daily range): BP systolic 119–139; BP diastolic 62–85; PULSE 77–95; RESP 9–17; O2SAT 94–100
[2023-10-04 03:08] LABS: BASOPHILS # (AUTO) 0.1 X10'3 (0-0.2); BASOPHILS % (AUTO) 0.6 % (0-1); EOSINOPHILS # (AUTO) 0.1 X10'3 (0-0.9); EOSINOPHILS % (AUTO) 0.6 % (0-6); HEMATOCRIT 30.6 % (35.0-45.0); HEMOGLOBIN 10.4 g/dl (12.0-16.0); LYMPHOCYTES % (AUTO) 7.1 % (21-51); MEAN CORPUSCULAR HEMOGLOBIN 28.9 PG (27.0-31.0); MEAN CORPUSCULAR HGB CONC 33.8 g/dL (33.0-36.5); MEAN CORPUSCULAR VOLUME 85.4 FL (78-98); MEAN PLATELET VOLUME 7.4 FL (7.4-10.4); MONOCYTES # (AUTO) 0.7 X10'3 (0-0.9); NEUTROPHILS # (AUTO) 11.8 X10'3 (1.8-7.7); NEUTROPHILS % (AUTO) 86.7 % (42-75); PLATELET COUNT 67 X10'3 (140-440); RED BLOOD COUNT 3.59 X10'6 (4.20-5.60); RED CELL DISTRIBUTION WIDTH 14.5 % (11.5-14.5); WHITE BLOOD COUNT 13.7 X10'3 (4.5-11.0)
[2023-10-04 03:21] LABS: ALANINE AMINOTRANSFERASE 75 U/L (12-78); ALBUMIN 3.4 G/DL (3.4-5.0); ALBUMIN/GLOBULIN RATIO 1.4 (1.1-1.5); ALKALINE PHOSPHATASE 204 IU/L (46-116); ANION GAP 4 (8-16); ASPARTATE AMINO TRANSFERASE 133 U/L (10-37); BILIRUBIN,TOTAL 0.4 MG/DL (0.1-1.0); BLOOD UREA NITROGEN 57 MG/DL (7-18); BUN/CREATININE RATIO 23.5 (10.0-20.0); C-REACTIVE PROTEIN 11.52 MG/DL (0.0-0.5); CALCIUM 7.6 MG/DL (8.5-10.1); CHLORIDE 86 MMOL/L (99-107); CREATININE 2.43 MG/DL (0.40-0.90); GLUCOSE 143 MG/DL (70-104); PHOSPHORUS 3.9 MG/DL (2.3-4.5); SODIUM 130 MMOL/L (135-145); TOTAL CARBON DIOXIDE 39.6 MMOL/L (24-32); TOTAL PROTEIN 5.9 G/DL (6.4-8.2); eCRCL 31 ML/MIN; eGFR 23 ML/MIN
[2023-10-04 03:25] LABS: POTASSIUM 2.9 MMOL/L (3.5-5.1)
[2023-10-04] MEDS: furosemide 10 MG/1 ML 10ml inj IV SCH (10:25)
[2023-10-04] MEDS: metolazone 2.5mg tablet CORPAK SCH (10:25)
[2023-10-04 10:45] LABS: MAGNESIUM 1.5 MG/DL (1.5-2.4)
[2023-10-04 10:50] LABS: CREATINE KINASE 3513 U/L (26-192)
[2023-10-04] MEDS: magnesium sulf-water 4G/100mL 100 ML IV ONE (11:03)
[2023-10-04] MEDS: POTASSIUM BICARB 20meq eff tab 20 MEQ TABLET.EFF PO SCH (13:18)
[2023-10-04] MEDS ORDERED: zolpidem 5mg tablet PO PRN (18:05)
[2023-10-04 18:28] LABS: ALBUMIN 3.7 G/DL (3.4-5.0); ANION GAP 3 (8-16); BLOOD UREA NITROGEN 61 MG/DL (7-18); BUN/CREATININE RATIO 27.5 (10.0-20.0); CHLORIDE 86 MMOL/L (99-107); CREATININE 2.22 MG/DL (0.40-0.90); GLUCOSE 112 MG/DL (70-104); MAGNESIUM 2.5 MG/DL (1.5-2.4); POTASSIUM 3.4 MMOL/L (3.5-5.1); SODIUM 130 MMOL/L (135-145); eCRCL 34 ML/MIN; eGFR 26 ML/MIN
[2023-10-04 18:36] LABS: CREATINE KINASE 2816 U/L (26-192)
[2023-10-04 18:37] LABS: TOTAL CARBON DIOXIDE 40.6 MMOL/L (24-32)
[2023-10-05] VITALS (26 sets, daily range): BP systolic 105–136; BP diastolic 57–88; PULSE 75–98; RESP 8–16; O2SAT 89–99
[2023-10-05] MEDS: HYDROmorphone/PF 0.2 MG/ML SYRINGE IV PRN (01:34)
[2023-10-05 04:23] LABS: ALANINE AMINOTRANSFERASE 65 U/L (12-78); ALBUMIN 3.4 G/DL (3.4-5.0); ALBUMIN/GLOBULIN RATIO 1.2 (1.1-1.5); ALKALINE PHOSPHATASE 188 IU/L (46-116); ANION GAP 2 (8-16); ASPARTATE AMINO TRANSFERASE 109 U/L (10-37); BILIRUBIN,TOTAL 0.3 MG/DL (0.1-1.0); BLOOD UREA NITROGEN 61 MG/DL (7-18); BUN/CREATININE RATIO 30.8 (10.0-20.0); C-REACTIVE PROTEIN 11.38 MG/DL (0.0-0.5); CALCIUM 8.1 MG/DL (8.5-10.1); CHLORIDE 86 MMOL/L (99-107); CREATININE 1.98 MG/DL (0.40-0.90); GLUCOSE 141 MG/DL (70-104); POTASSIUM 3.7 MMOL/L (3.5-5.1); PREALBUMIN 13.6 MG/DL (19-36); SODIUM 131 MMOL/L (135-145); TOTAL PROTEIN 6.2 G/DL (6.4-8.2); eCRCL 39 ML/MIN; eGFR 29 ML/MIN
[2023-10-05 04:25] LABS: TOTAL CARBON DIOXIDE 42.6 MMOL/L (24-32)
[2023-10-05 06:08] LABS: WHITE BLOOD COUNT 12.3 X10'3 (4.5-11.0)
[2023-10-05 06:09] LABS: HEMATOCRIT 29.9 % (37.7-47.9); HEMOGLOBIN 10.1 G/DL (11.5-16.0); MEAN CORPUSCULAR HGB CONC 33.6 % (32-36); MEAN CORPUSCULAR VOLUME 86.3 FL (81-97); PLATELET COUNT 83 X10'3 (130-400); RED BLOOD COUNT 3.47 X10'6 (3.60-4.90); RED CELL DISTRIBUTION WIDTH 14.6 % (11-16)
[2023-10-05 06:10] LABS: BASOPHILS % 0 % (0-2); EOSINOPHILS # (AUTO) 0.1 X10'3 (0-0.9); EOSINOPHILS % (AUTO) 1 % (0-6); LYMPHOCYTES # (AUTO) 0.6 X10'3 (1.1-4.8); LYMPHOCYTES % 5 % (24-44); MONOCYTES # (AUTO) 0.6 X10'3 (0-0.9); MONOCYTES % 5 % (0-12); NEUTROPHILS # (AUTO) 10.8 X10'3 (1.8-7.7); SEGMENTED NEUTROPHILS % 88 % (36-66)
[2023-10-05] MEDS ORDERED: POTASSIUM CHLORIDE 20 MEQ/15 ML oral solution PO PRN (11:52)
[2023-10-05] MEDS ORDERED: POTASSIUM CHLORIDE 20 MEQ/15 ML oral solution CORPAK PRN ×2 (11:53→11:54)
[2023-10-05] MEDS: lactobacillus rhamnosus 10,000 MMU CELLS/CAPSULE CORPAK SCH (11:54)
[2023-10-05] MEDS ORDERED: VANCOMYCIN LEVEL IV ONE (12:30)
[2023-10-05] MEDS: POTASSIUM CHLORIDE 20 MEQ/15 ML oral solution CORPAK SCH (14:04)
[2023-10-05] MEDS: cefepime 1GM/NS 100 ML IVPB IV SCH (19:10)
[2023-10-05] MEDS: HYDROcodone/acetaminophen 7.5MG/325MG per 15ml UD CUP CORPAK PRN (21:13)
[2023-10-06] VITALS (22 sets, daily range): BP systolic 111–139; BP diastolic 58–83; PULSE 82–101; RESP 11–20; TEMP 97.8–98; O2SAT 93–100
[2023-10-06 03:32] LABS: BASOPHILS % (AUTO) 0.2 % (0-1); EOSINOPHILS # (AUTO) 0.1 X10'3 (0-0.9); EOSINOPHILS % (AUTO) 0.9 % (0-6); HEMATOCRIT 25.3 % (35.0-45.0); HEMOGLOBIN 8.5 g/dl (12.0-16.0); LYMPHOCYTES # (AUTO) 0.6 X10'3 (1.1-4.8); LYMPHOCYTES % (AUTO) 6.6 % (21-51); MEAN CORPUSCULAR HEMOGLOBIN 28.7 PG (27.0-31.0); MEAN CORPUSCULAR HGB CONC 33.7 g/dL (33.0-36.5); MEAN CORPUSCULAR VOLUME 85.2 FL (78-98); MEAN PLATELET VOLUME 7.6 FL (7.4-10.4); MONOCYTES # (AUTO) 0.6 X10'3 (0-0.9); MONOCYTES % (AUTO) 6.5 % (2-12); NEUTROPHILS # (AUTO) 7.6 X10'3 (1.8-7.7); NEUTROPHILS % (AUTO) 85.8 % (42-75); PLATELET COUNT 89 X10'3 (140-440); RED BLOOD COUNT 2.97 X10'6 (4.20-5.60); RED CELL DISTRIBUTION WIDTH 14.8 % (11.5-14.5); WHITE BLOOD COUNT 8.8 X10'3 (4.5-11.0)
[2023-10-06 03:37] LABS: ALANINE AMINOTRANSFERASE 54 U/L (12-78); ALBUMIN 3.8 G/DL (3.4-5.0); ALBUMIN/GLOBULIN RATIO 1.5 (1.1-1.5); ALKALINE PHOSPHATASE 154 IU/L (46-116); ASPARTATE AMINO TRANSFERASE 86 U/L (10-37); BILIRUBIN,TOTAL 0.4 MG/DL (0.1-1.0); BLOOD UREA NITROGEN 74 MG/DL (7-18); BUN/CREATININE RATIO 40.7 (10.0-20.0); C-REACTIVE PROTEIN 10.93 MG/DL (0.0-0.5); CALCIUM 8.7 MG/DL (8.5-10.1); CHLORIDE 87 MMOL/L (99-107); CREATININE 1.82 MG/DL (0.40-0.90); GLUCOSE 124 MG/DL (70-104); POTASSIUM 3.6 MMOL/L (3.5-5.1); SODIUM 132 MMOL/L (135-145); TOTAL PROTEIN 6.3 G/DL (6.4-8.2); eCRCL 42 ML/MIN; eGFR 32 ML/MIN
[2023-10-06 03:49] LABS: ANION GAP -3 (8-16)
[2023-10-06 03:55] LABS: TOTAL CARBON DIOXIDE 48.2 MMOL/L (24-32)
[2023-10-06 04:04] LABS: PLATELET ESTIMATE DECREASED; STOMATOCYTES FEW; TARGET CELLS 1+; TOTAL CELLS COUNTED 100
[2023-10-06] MEDS ORDERED: furosemide 40mg/4ml inj IV SCH (08:00)
[2023-10-06 10:02] LABS: MAGNESIUM 2.1 MG/DL (1.5-2.4); PHOSPHORUS 2.8 MG/DL (2.3-4.5)
[2023-10-06 11:16] LABS: ABG BASE EXCESS 13.4 mmol/L (-2.0-2.0); ABG HCO3 38.2 mmol/L (22.0-26.0); ABG OXYGEN SATURATION 91.6 % (92-98.5); ABG PCO2 (T) 49.5 mmHg (32.0-45.0); ABG PH (T) 7.504 (7.350-7.450); ABG PO2 (T) 57.5 mmHg (75.0-100.0); ALLEN'S TEST POSITIVE; FCOHb 0.5 % (0.5-1.5); FHHb 8.3 % (0.0-5.0); FMetHb 0.3 % (0.0-1.5); FO2Hb 90.9 % (94-97); MODE NASAL CANNULA; PATIENT TEMPERATURE 36.5; TOTAL HEMOGLOBIN 9.1 G/dl (12.0-16.0)
[2023-10-06] MEDS: normal saline 1000ml 1,000 ML IV SCH (11:44)
[2023-10-06 12:21] LABS: FREE T4 (FREE THYROXINE) 0.65 NG/DL (0.73-1.40); THYROID STIMULATING HORMONE 7.09 ulU/ml (0.34-4.50)
[2023-10-06 12:54] LABS: % IRON SATURATION 12 % (11-46); IRON 18 UG/DL (49-151); TOTAL IRON BINDING CAPACITY 149 UG/DL (259-388)
[2023-10-06 13:25] LABS: CREATINE KINASE 1276 U/L (26-192)
[2023-10-06] MEDS: linezolid 600mg tablet PO SCH (21:45)
[2023-10-06] MEDS: zolpidem 5mg tablet CORPAK PRN (21:45)
[2023-10-07] VITALS (12 sets, daily range): BP systolic 118–130; BP diastolic 61–74; PULSE 90–105; RESP 15–20; TEMP 97.4–98.8; O2SAT 95–100
[2023-10-07 06:22] LABS: BASOPHILS % (AUTO) 0.4 % (0-1); EOSINOPHILS # (AUTO) 0.1 X10'3 (0-0.9); EOSINOPHILS % (AUTO) 0.9 % (0-6); HEMATOCRIT 23.4 % (35.0-45.0); LYMPHOCYTES # (AUTO) 0.5 X10'3 (1.1-4.8); LYMPHOCYTES % (AUTO) 5.8 % (21-51); MEAN CORPUSCULAR HEMOGLOBIN 29.4 PG (27.0-31.0); MEAN CORPUSCULAR HGB CONC 34.3 g/dL (33.0-36.5); MEAN PLATELET VOLUME 7.7 FL (7.4-10.4); MONOCYTES # (AUTO) 0.7 X10'3 (0-0.9); MONOCYTES % (AUTO) 7.2 % (2-12); NEUTROPHILS # (AUTO) 8.1 X10'3 (1.8-7.7); NEUTROPHILS % (AUTO) 85.7 % (42-75); PLATELET COUNT 108 X10'3 (140-440); RED BLOOD COUNT 2.73 X10'6 (4.20-5.60); WHITE BLOOD COUNT 9.5 X10'3 (4.5-11.0)
[2023-10-07 06:36] LABS: ALANINE AMINOTRANSFERASE 59 U/L (12-78); ALBUMIN 3.1 G/DL (3.4-5.0); ALKALINE PHOSPHATASE 168 IU/L (46-116); ANION GAP 4 (8-16); ASPARTATE AMINO TRANSFERASE 77 U/L (10-37); BILIRUBIN,TOTAL 0.2 MG/DL (0.1-1.0); BLOOD UREA NITROGEN 92 MG/DL (7-18); BUN/CREATININE RATIO 60.5 (10.0-20.0); C-REACTIVE PROTEIN 11.95 MG/DL (0.0-0.5); CALCIUM 9.3 MG/DL (8.5-10.1); CHLORIDE 88 MMOL/L (99-107); CREATININE 1.52 MG/DL (0.40-0.90); GLUCOSE 132 MG/DL (70-104); PHOSPHORUS 3.3 MG/DL (2.3-4.5); POTASSIUM 3.5 MMOL/L (3.5-5.1); SODIUM 131 MMOL/L (135-145); TOTAL CARBON DIOXIDE 39.3 MMOL/L (24-32); TOTAL PROTEIN 6.2 G/DL (6.4-8.2); eCRCL 50 ML/MIN; eGFR 40 ML/MIN
[2023-10-07 07:35] LABS: TOTAL CELLS COUNTED 100
[2023-10-07 07:38] LABS: STOMATOCYTES 1+
[2023-10-07 07:39] LABS: LARGE PLATELETS FEW; PLATELET ESTIMATE DECREASED
[2023-10-07 07:45] LABS: TARGET CELLS 1+
[2023-10-08] VITALS (15 sets, daily range): BP systolic 107–138; BP diastolic 63–80; PULSE 80–109; RESP 14–20; TEMP 97.2–98.1; O2SAT 98–100
[2023-10-08] MEDS: HYDROmorphone inj. 0.5 MG/0.5 ML DISP.SYRIN IV PRN ×2 (06:14→20:53)
[2023-10-08 07:37] LABS: BASOPHILS % (AUTO) 0.3 % (0-1); EOSINOPHILS # (AUTO) 0.1 X10'3 (0-0.9); HEMATOCRIT 22.1 % (35.0-45.0); HEMOGLOBIN 7.5 g/dl (12.0-16.0); LYMPHOCYTES # (AUTO) 0.5 X10'3 (1.1-4.8); LYMPHOCYTES % (AUTO) 6.7 % (21-51); MEAN CORPUSCULAR HEMOGLOBIN 29.1 PG (27.0-31.0); MEAN CORPUSCULAR HGB CONC 33.8 g/dL (33.0-36.5); MEAN PLATELET VOLUME 7.6 FL (7.4-10.4); MONOCYTES # (AUTO) 0.5 X10'3 (0-0.9); MONOCYTES % (AUTO) 7.1 % (2-12); NEUTROPHILS # (AUTO) 6.3 X10'3 (1.8-7.7); NEUTROPHILS % (AUTO) 84.9 % (42-75); PLATELET COUNT 129 X10'3 (140-440); RED BLOOD COUNT 2.57 X10'6 (4.20-5.60); RED CELL DISTRIBUTION WIDTH 15.1 % (11.5-14.5); WHITE BLOOD COUNT 7.4 X10'3 (4.5-11.0)
[2023-10-08 07:53] LABS: ALANINE AMINOTRANSFERASE 56 U/L (12-78); ALBUMIN 2.7 G/DL (3.4-5.0); ALBUMIN/GLOBULIN RATIO 0.8 (1.1-1.5); ALKALINE PHOSPHATASE 173 IU/L (46-116); ANION GAP 0 (8-16); ASPARTATE AMINO TRANSFERASE 74 U/L (10-37); BILIRUBIN,TOTAL 0.3 MG/DL (0.1-1.0); BLOOD UREA NITROGEN 88 MG/DL (7-18); BUN/CREATININE RATIO 63.3 (10.0-20.0); C-REACTIVE PROTEIN 10.45 MG/DL (0.0-0.5); CALCIUM 9.1 MG/DL (8.5-10.1); CHLORIDE 92 MMOL/L (99-107); CREATININE 1.39 MG/DL (0.40-0.90); GLUCOSE 103 MG/DL (70-104); MAGNESIUM 1.7 MG/DL (1.5-2.4); POTASSIUM 3.6 MMOL/L (3.5-5.1); PREALBUMIN 19.9 MG/DL (19-36); SODIUM 133 MMOL/L (135-145); eCRCL 55 ML/MIN; eGFR 44 ML/MIN
[2023-10-08 08:07] LABS: PLATELET ESTIMATE DECREASED; TOTAL CELLS COUNTED 100
[2023-10-08 08:33] LABS: TOTAL CARBON DIOXIDE 41.2 MMOL/L (24-32)
[2023-10-08] MEDS ORDERED: spironolactone 25 MG tablet PO SCH (13:00)
[2023-10-08] MEDS ORDERED: linezolid 600mg tablet CORPAK SCH (13:06)
[2023-10-08] MEDS: spironolactone 25 MG tablet PO SCH (13:55)
[2023-10-08 13:56] LABS: TOTAL PROTEIN 24HR,URINE 2948.4 MG/24HR (28-141)
[2023-10-08 13:57] LABS: UREA NITROGEN 24HR,URINE 34.2 GM/24HR (7-20)
[2023-10-08 14:42] LABS: PRO BRAIN NATRIURETIC PEPTIDE 2700 PG/ML (0-125)
[2023-10-08] MEDS: magnesium sulf-water 4G/100mL 100 ML IV ONE (15:53)
[2023-10-08] MEDS: magnesium sulf-water 2g/50mL 50 ML IV ONE (16:12)
[2023-10-08] MEDS: linezolid 600mg tablet PO SCH (19:22)
[2023-10-08] MEDS: magnesium sulf-water 2g/50mL 50 ML IV SCH (19:24)
[2023-10-08] MEDS: ferrous sulfate ER tablet 140 MG TABLET.ER PO SCH (20:52)
[2023-10-08] MEDS: oxyCODONE/APAP 5-325mg tablet CORPAK PRN (23:22)
[2023-10-09] VITALS (12 sets, daily range): BP systolic 113–129; BP diastolic 62–78; PULSE 91–117; RESP 16–22; TEMP 96.4–98.6; O2SAT 95–100
[2023-10-09 04:34] LABS: BASOPHILS % (AUTO) 0.5 % (0-1); EOSINOPHILS # (AUTO) 0.1 X10'3 (0-0.9); HEMATOCRIT 29.6 % (35.0-45.0); HEMOGLOBIN 10.1 g/dl (12.0-16.0); LYMPHOCYTES # (AUTO) 0.4 X10'3 (1.1-4.8); LYMPHOCYTES % (AUTO) 5.4 % (21-51); MEAN CORPUSCULAR HEMOGLOBIN 29.4 PG (27.0-31.0); MEAN CORPUSCULAR VOLUME 86.4 FL (78-98); MEAN PLATELET VOLUME 7.8 FL (7.4-10.4); MONOCYTES # (AUTO) 0.5 X10'3 (0-0.9); MONOCYTES % (AUTO) 6.7 % (2-12); NEUTROPHILS % (AUTO) 86.4 % (42-75); PLATELET COUNT 140 X10'3 (140-440); RED BLOOD COUNT 3.42 X10'6 (4.20-5.60); RED CELL DISTRIBUTION WIDTH 14.9 % (11.5-14.5); WHITE BLOOD COUNT 6.9 X10'3 (4.5-11.0)
[2023-10-09 04:46] LABS: ALANINE AMINOTRANSFERASE 63 U/L (12-78); ALBUMIN 2.7 G/DL (3.4-5.0); ALBUMIN/GLOBULIN RATIO 0.8 (1.1-1.5); ALKALINE PHOSPHATASE 165 IU/L (46-116); ANION GAP 5 (8-16); ASPARTATE AMINO TRANSFERASE 77 U/L (10-37); BILIRUBIN,TOTAL 0.3 MG/DL (0.1-1.0); BLOOD UREA NITROGEN 88 MG/DL (7-18); BUN/CREATININE RATIO 69.3 (10.0-20.0); C-REACTIVE PROTEIN 11.19 MG/DL (0.0-0.5); CALCIUM 9.2 MG/DL (8.5-10.1); CHLORIDE 93 MMOL/L (99-107); CREATININE 1.27 MG/DL (0.40-0.90); GLUCOSE 135 MG/DL (70-104); MAGNESIUM 2.6 MG/DL (1.5-2.4); PHOSPHORUS 3.1 MG/DL (2.3-4.5); POTASSIUM 3.6 MMOL/L (3.5-5.1); SODIUM 136 MMOL/L (135-145); TOTAL CARBON DIOXIDE 38.1 MMOL/L (24-32); TOTAL PROTEIN 6.3 G/DL (6.4-8.2); eCRCL 60 ML/MIN; eGFR 49 ML/MIN
[2023-10-09] MEDS: magnesium sulf-water 2g/50mL 50 ML IV SCH (08:06)
[2023-10-09] MEDS: DAPAGLIFLOZIN 10MG TABLET PO SCH (08:09)
[2023-10-09] MEDS: metoprolol succinate 25mg (24-HOUR) SR. Tablet PO SCH (08:09)
[2023-10-09] MEDS: sertraline 50mg tablet PO SCH (08:10)
[2023-10-09] MEDS ORDERED: spironolactone 25 MG tablet PO SCH (08:30)
[2023-10-09] MEDS: furosemide 40mg/4ml inj IV ONE (12:32)
[2023-10-09] MEDS: sodium ferric gluc complex inj 125 MG in normal saline 100ml IV soln 100 ML IV SCH (15:26)
[2023-10-09] MEDS: furosemide 40mg/4ml inj IV SCH (20:51)
[2023-10-09] MEDS: FERROUS SULFATE 142 MG TABLET.ER (45mg elemental) PO SCH (21:20)
[2023-10-10] VITALS (12 sets, daily range): BP systolic 92–136; BP diastolic 57–80; PULSE 84–101; RESP 13–22; TEMP 97.1–97.8; O2SAT 95–99
[2023-10-10 06:30] LABS: ALANINE AMINOTRANSFERASE 99 U/L (12-78); ALBUMIN 2.9 G/DL (3.4-5.0); ALBUMIN/GLOBULIN RATIO 0.7 (1.1-1.5); ALKALINE PHOSPHATASE 197 IU/L (46-116); ANION GAP 3 (8-16); ASPARTATE AMINO TRANSFERASE 109 U/L (10-37); BILIRUBIN,TOTAL 0.3 MG/DL (0.1-1.0); BLOOD UREA NITROGEN 79 MG/DL (7-18); BUN/CREATININE RATIO 64.8 (10.0-20.0); CALCIUM 9.5 MG/DL (8.5-10.1); CHLORIDE 94 MMOL/L (99-107); CREATININE 1.22 MG/DL (0.40-0.90); GLUCOSE 97 MG/DL (70-104); MAGNESIUM 2.3 MG/DL (1.5-2.4); PHOSPHORUS 4.3 MG/DL (2.3-4.5); POTASSIUM 4.5 MMOL/L (3.5-5.1); SODIUM 137 MMOL/L (135-145); TOTAL CARBON DIOXIDE 39.6 MMOL/L (24-32); TOTAL PROTEIN 6.8 G/DL (6.4-8.2); eCRCL 63 ML/MIN; eGFR 51 ML/MIN
[2023-10-10 06:33] LABS: BASOPHILS % (AUTO) 0.3 % (0-1); EOSINOPHILS # (AUTO) 0.1 X10'3 (0-0.9); LYMPHOCYTES # (AUTO) 0.5 X10'3 (1.1-4.8); LYMPHOCYTES % (AUTO) 6.7 % (21-51); MEAN CORPUSCULAR HEMOGLOBIN 28.6 PG (27.0-31.0); MEAN CORPUSCULAR HGB CONC 33.3 g/dL (33.0-36.5); MEAN CORPUSCULAR VOLUME 85.9 FL (78-98); MEAN PLATELET VOLUME 7.5 FL (7.4-10.4); MONOCYTES # (AUTO) 0.6 X10'3 (0-0.9); MONOCYTES % (AUTO) 8.6 % (2-12); NEUTROPHILS # (AUTO) 6.3 X10'3 (1.8-7.7); NEUTROPHILS % (AUTO) 83.4 % (42-75); PLATELET COUNT 211 X10'3 (140-440); RED BLOOD COUNT 2.79 X10'6 (4.20-5.60); RED CELL DISTRIBUTION WIDTH 15.1 % (11.5-14.5); WHITE BLOOD COUNT 7.6 X10'3 (4.5-11.0)
[2023-10-10] MEDS: spironolactone 25 MG tablet PO SCH ×2 (09:00→13:45)
[2023-10-10 09:22] LABS: ANISOCYTOSIS 1+; MICROCYTOSIS 1+; PLATELET ESTIMATE NORMAL; POIKILOCYTOSIS FEW; STOMATOCYTES 1+
[2023-10-10] MEDS: acetaZOLAMIDE 250mg tablet PO SCH (13:45)
[2023-10-11] VITALS (10 sets, daily range): BP systolic 116–152; BP diastolic 66–93; PULSE 81–98; RESP 13–18; TEMP 97.4–98.6; O2SAT 96–100
[2023-10-11 08:12] LABS: BASOPHILS # (AUTO) 0.1 X10'3 (0-0.2); BASOPHILS % (AUTO) 0.9 % (0-1); EOSINOPHILS # (AUTO) 0.1 X10'3 (0-0.9); EOSINOPHILS % (AUTO) 1.8 % (0-6); HEMATOCRIT 28.7 % (35.0-45.0); HEMOGLOBIN 9.5 g/dl (12.0-16.0); LYMPHOCYTES # (AUTO) 0.6 X10'3 (1.1-4.8); LYMPHOCYTES % (AUTO) 8.5 % (21-51); MEAN CORPUSCULAR HEMOGLOBIN 28.8 PG (27.0-31.0); MEAN CORPUSCULAR VOLUME 87.4 FL (78-98); MEAN PLATELET VOLUME 7.3 FL (7.4-10.4); MONOCYTES # (AUTO) 0.6 X10'3 (0-0.9); MONOCYTES % (AUTO) 8.3 % (2-12); NEUTROPHILS # (AUTO) 5.6 X10'3 (1.8-7.7); NEUTROPHILS % (AUTO) 80.5 % (42-75); PLATELET COUNT 276 X10'3 (140-440); RED BLOOD COUNT 3.28 X10'6 (4.20-5.60); RED CELL DISTRIBUTION WIDTH 15.3 % (11.5-14.5)
[2023-10-11 08:38] LABS: ALANINE AMINOTRANSFERASE 115 U/L (12-78); ALBUMIN 3.1 G/DL (3.4-5.0); ALBUMIN/GLOBULIN RATIO 0.8 (1.1-1.5); ALKALINE PHOSPHATASE 194 IU/L (46-116); ANION GAP 9 (8-16); ASPARTATE AMINO TRANSFERASE 100 U/L (10-37); BILIRUBIN,TOTAL 0.3 MG/DL (0.1-1.0); BLOOD UREA NITROGEN 74 MG/DL (7-18); BUN/CREATININE RATIO 66.7 (10.0-20.0); CALCIUM 9.7 MG/DL (8.5-10.1); CHLORIDE 96 MMOL/L (99-107); CREATININE 1.11 MG/DL (0.40-0.90); GLUCOSE 98 MG/DL (70-104); PHOSPHORUS 5.5 MG/DL (2.3-4.5); POTASSIUM 5.1 MMOL/L (3.5-5.1); SODIUM 136 MMOL/L (135-145); TOTAL CARBON DIOXIDE 31.3 MMOL/L (24-32); TOTAL PROTEIN 7.2 G/DL (6.4-8.2); eCRCL 69 ML/MIN; eGFR 57 ML/MIN
[2023-10-12 06:00] VITALS: BP 131/79; PULSE 96; RESP 16; TEMP 97.8; O2SAT 97
[2023-10-12 06:51] LABS: BASOPHILS # (AUTO) 0.1 X10'3 (0-0.2); EOSINOPHILS # (AUTO) 0.2 X10'3 (0-0.9); EOSINOPHILS % (AUTO) 2.1 % (0-6); HEMATOCRIT 25.6 % (35.0-45.0); HEMOGLOBIN 8.4 g/dl (12.0-16.0); LYMPHOCYTES # (AUTO) 0.7 X10'3 (1.1-4.8); LYMPHOCYTES % (AUTO) 7.7 % (21-51); MEAN CORPUSCULAR HEMOGLOBIN 28.8 PG (27.0-31.0); MEAN CORPUSCULAR HGB CONC 32.7 g/dL (33.0-36.5); MEAN CORPUSCULAR VOLUME 88.1 FL (78-98); MEAN PLATELET VOLUME 7.4 FL (7.4-10.4); MONOCYTES # (AUTO) 0.6 X10'3 (0-0.9); MONOCYTES % (AUTO) 7.3 % (2-12); NEUTROPHILS % (AUTO) 81.9 % (42-75); PLATELET COUNT 370 X10'3 (140-440); RED CELL DISTRIBUTION WIDTH 15.4 % (11.5-14.5); WHITE BLOOD COUNT 8.5 X10'3 (4.5-11.0)
[2023-10-12 06:54] LABS: ALANINE AMINOTRANSFERASE 149 U/L (12-78); ALBUMIN 3.2 G/DL (3.4-5.0); ALBUMIN/GLOBULIN RATIO 0.8 (1.1-1.5); ALKALINE PHOSPHATASE 216 IU/L (46-116); ANION GAP 10 (8-16); ASPARTATE AMINO TRANSFERASE 124 U/L (10-37); BILIRUBIN,TOTAL 0.3 MG/DL (0.1-1.0); BLOOD UREA NITROGEN 76 MG/DL (7-18); BUN/CREATININE RATIO 72.4 (10.0-20.0); CALCIUM 9.6 MG/DL (8.5-10.1); CHLORIDE 101 MMOL/L (99-107); CREATININE 1.05 MG/DL (0.40-0.90); GLUCOSE 96 MG/DL (70-104); PHOSPHORUS 5.7 MG/DL (2.3-4.5); POTASSIUM 4.9 MMOL/L (3.5-5.1); SODIUM 137 MMOL/L (135-145); TOTAL CARBON DIOXIDE 26.3 MMOL/L (24-32); TOTAL PROTEIN 7.4 G/DL (6.4-8.2); eCRCL 73 ML/MIN; eGFR 61 ML/MIN
[2023-10-12 07:36] VITALS: PULSE 78; RESP 15; O2SAT 99
[2023-10-12 07:36] LABS: ANISOCYTOSIS FEW; ELLIPTOCYTES FEW; HYPOCHROMASIA 1+; PLATELET ESTIMATE NORMAL; STOMATOCYTES FEW
[2023-10-12 07:39] VITALS: PULSE 88; RESP 16
[2023-10-12 08:00] VITALS: RESP 13; O2SAT 97
[2023-10-12 14:53] VITALS: RESP 18
[2023-10-13] MEDS ORDERED: pantoprazole 40mg Tablet.DR PO SCH (07:30)
== END 2023-10-12 15:00 | DRG 720 ==
LOC: ER 13:20 → EEVIPCON 17:02 → ED HOLD 17:02 → ORTHO 4S 22:10 → CICU 2S 09-27 02:46 → PCU 3S 10-06 15:51
PROVIDERS: ADMIT Internal Medicine; ATTEND Internal Medicine
PROC: B32T1ZZ Computerized Tomography (CT Scan) of Left Pulmonary Artery using Low Osmolar Contrast (ICD-10-PCS; principal; 2023-09-25)
PROC: B3201ZZ Computerized Tomography (CT Scan) of Thoracic Aorta using Low Osmolar Contrast (ICD-10-PCS; 2023-09-25)
PROC: B32S1ZZ Computerized Tomography (CT Scan) of Right Pulmonary Artery using Low Osmolar Contrast (ICD-10-PCS; 2023-09-25)
PROC: 0JBH0ZZ Excision of Left Lower Arm Subcutaneous Tissue and Fascia, Open Approach (ICD-10-PCS; 2023-09-26)
PROC: 05HM33Z Insertion of Infusion Device into Right Internal Jugular Vein, Percutaneous Approach (ICD-10-PCS; 2023-09-28)
PROC: B543ZZA Ultrasonography of Right Jugular Veins, Guidance (ICD-10-PCS; 2023-09-28)
PROC: 30233N1 Transfusion of Nonautologous Red Blood Cells into Peripheral Vein, Percutaneous Approach (ICD-10-PCS; 2023-09-29)
DX: A41.9 Sepsis, unspecified organism (principal); G93.40 Encephalopathy, unspecified; T79.A12A Traumatic compartment syndrome of left upper extremity, initial encounter; A04.72 Enterocolitis due to Clostridium difficile, not specified as recurrent; N17.9 Acute kidney failure, unspecified; D69.6 Thrombocytopenia, unspecified; E87.1 Hypo-osmolality and hyponatremia; E87.3 Alkalosis; M62.82 Rhabdomyolysis; F17.210 Nicotine dependence, cigarettes, uncomplicated; J45.909 Unspecified asthma, uncomplicated; F41.9 Anxiety disorder, unspecified; L03.114 Cellulitis of left upper limb; E86.0 Dehydration; E03.8 Other specified hypothyroidism; E87.6 Hypokalemia; F53.0 Postpartum depression; M72.9 Fibroblastic disorder, unspecified; J98.11 Atelectasis; G47.00 Insomnia, unspecified; I50.20 Unspecified systolic (congestive) heart failure; M54.9 Dorsalgia, unspecified; D75.1 Secondary polycythemia; N14.19 Nephropathy induced by other drugs, medicaments and biological substances; T43.625A Adverse effect of amphetamines, initial encounter; F15.10 Other stimulant abuse, uncomplicated; D64.9 Anemia, unspecified; R65.20 Severe sepsis without septic shock; T50.2X5A Adverse effect of carbonic-anhydrase inhibitors, benzothiadiazides and other diuretics, initial encounter; E61.1 Iron deficiency; Z79.899 Other long term (current) drug therapy; Z87.11 Personal history of peptic ulcer disease; Y92.89 Other specified places as the place of occurrence of the external cause
CPT/HCPCS: 36415; 36430; 36600; 71045; 71250; 71275; 73200; 73560; 74018; 76700; 76942; 80048; 80051; 80053; 80202; 81001; 82330; 82550; 82570; 82803; 82948; 83540; 83550; 83605; 83735; 83880; 83970; 84100; 84132; 84133; 84134; 84145; 84156; 84300; 84439; 84443; 84484; 84540; 84550; 84560; 84703; 85007; 85008; 85018; 85025; 85379; 85384; 85610; 85651; 85730; 86022; 86140; 86870; 86880; 86885; 86900; 86901; 86905; 86920; 86922; 87040; 87070; 87075; 87081; 87088; 87102; 87207; 87324; 87449; 93005; 93306; 93922; 93971; 93975; 94640; 94760; 97110; 97116; 97161; 97530; 97535; 99291; A4314; A4615; A4618; A4620; A4649; A5200; A6154; A6213; A6223; A6243; A6250; A6253; A6258; A6260; A6402; A6446; A6449; A7000; C1751; C1758; G0378; J0131; J0610; J0692; J0780; J1100; J1170; J1644; J1940; J2020; J2060; J2250; J2270; J2405; J2470; J2543; J2704; J2765; J2916; J3010; J3370; J3475; J3480; J3490; J7030; J7040; J7050; J7070; J7120; P9016; P9045; P9047; Q9967

== ENCOUNTER 2024-07-26 21:58 | Emergency (ER) | payer MEDICAID ==
[~2024-07-26] VITALS: Ht 154.9 cm; Wt 72.7 kg
[~2024-07-26 21:58] MED LIST changes: -ALBU8HFA PO; -BECL7.3A INH; +FAMO20TA8 PO; +SERT-432 PO; +VITC500T PO; +VITD400T PO
[2024-07-26 23:58] LABS: BILIRUBIN,URINE NEGATIVE (Neg); CLARITY,URINE CLOUDY (Clear); COLOR,URINE YELLOW (Yellow); GLUCOSE, URINE NEGATIVE (Neg); KETONES,URINE NEGATIVE (Neg); LEUKOCYTE ESTERASE ,URINE LARGE (Neg); NITRITES, URINE NEGATIVE (Neg); OCCULT BLOOD,URINE TRACE-INTACT (Neg); PH,URINE 6.5 (4.8-8.0); PROTEIN,URINE TRACE mg/dl (Neg); UROBILINOGEN,URINE 0.2 E.U/dL (0.2-1.0)
[2024-07-27 00:02] LABS: URINE HCG NEGATIVE (NEG)
[2024-07-27 00:09] LABS: UA COLLECTION TYPE CLN CATCH MIDSTREAM
[2024-07-27 00:11] LABS: TRANSITIONAL EPI CELLS,URINE FEW /HPF; WBC,URINE TNTC /HPF (0-4)
[2024-07-27 00:12] LABS: BACTERIA,URINE FEW /HPF (Neg); MUCUS STRANDS MODERATE /LPF (Neg); SQUAMOUS EPITHELIAL CELL,UR MODERATE /LPF (FEW)
--- NOTE | 2024-07-27 01:27 | Physician Documentation ---
History of Present Illness ~ Chief Complaint: Urinary Symptoms Stated Complaint: UTI Time Seen by MD: 01:26 Primary Medical Doctor: IRAIDA KELLEY IN Mode of Arrival: POV HPI Patient presents to the emergency room with chief complaint of urinary frequency and painful urination. Subjective fevers positive. She states she has had problems with urinary tract infections since she was 7 years old. No other complaints. Symptoms has been going on for a few weeks. Medication Reconciliation Allergies: Coded Allergies: No Known Drug Allergies (Verified Allergy, Unknown, 09/25/23) Scheduled Ascorbic Acid* (Vitamin C*), 1 TAB PO DAILY, (Reported) Budesonide/Formoterol Fumarate (Symbicort 160-4.5 Mcg Inhaler), 2 PUFFS INH Q12H, (Reported) Cholecalciferol (Vitamin D3) (Vitamin D), 1 TAB PO DAILY, (Reported) Famotidine (Famotidine), 1 TAB PO BID, (Reported) Sertraline HCl (Sertraline HCl), 1 TAB PO DAILY, (Reported) Scheduled PRN Albuterol Sulfate (Ventolin Hfa), 2 PUFFS INH Q4HPRN PRN for wheezing, (Reported) Past Medical History Past Medical History: Asthma, Bronchitis, Peptic Ulcer Disease Past Surgical History: noncontributory Patient History: Patient reports no known family medical history. Alcohol Use: Rarely Drug Use: marijuana Lives with: Family Lives In: Home Occupation: employed Review of Systems ROS All review of systems negative except as per HPI Physical Exam Vital Signs: Temperature: 98.9, Source: Temporal, Heart Rate: 40, Respiratory Rate: 18, BP: 97/49, Pulse Oximetry: 98, Weight: 72.730 Oxygen Flow Rate: 0 Physical Exam General: Patient is sleeping, easily arousable in no acute distress and well- appearing Head: Normocephalic and atraumatic. Eyes: Conjunctival normal. EOMI. PERRL. ENT: Mucous membranes moist. Neck: Supple, trachea is midline. Chest: Clear to auscultation bilaterally without rales, rhonchi, or wheezes. There is no accessory muscle use or retractions. Cardiac: RRR without murmurs, gallops, or rubs. Abd: Soft, nondistended, nontender, with normoactive bowel sounds. No guarding, rebound, or rigidity. Back: Mild right-sided CVA tenderness Progress Results/Orders Results/Orders Orders - AMARI TAMAYO MD Straight Cath For Urine Sample (07/26/24 22:06) Cult Urine + [place] [place] [address] (07/27/24 00:13) Completed Orders - AMARI TAMAYO MD Hcg, Ur Ql (07/26/24 22:06) Ua W/Microscopic, Cult If Ind (07/26/24 23:20) Vital Signs 07/26/24 07/26/24 07/26/24 07/26/24 22:24 23:13 23:14 23:53 Temp 98.9 Pulse 63 41 40 Resp 15 18 B/P (MAP) 99/62 113/41 (65) 97/49 (65) Pulse Ox 96 98 98 O2 Flow Rate 0 Laboratory Tests Test 07/26/24 23:20 Urine Specimen Description Cln catch midstream Urine Color Yellow Urine Clarity Cloudy Urine pH 6.5 Urine Specific [place] 1.010 Urine Protein Trace Urine Glucose (UA) Negative Urine Ketones Negative Urine Occult Blood Trace-intact Urine Nitrite Negative Urine Bilirubin Negative Urine Urobilinogen 0.2 Urine Leukocyte Esterase Large H Urine RBC 3-10 Urine WBC Tntc H Urine Squamous Epithelial Cells Moderate Urine Transitional Epithelial Cells Few Urine Bacteria Few Urine Mucus Moderate Urine Culture Indicated Indicated Volume Urine Centrifuged 10 ml Urine HCG, Qualitative Negative Urine Comment Microbiology Date/Time Source Procedure Growth Status 07/27/24 00:13 Urine Clean Catch Midstream Urine Culture - Preliminary Culture received. Resulted Medical Decision Making Findings Patient presents to the emergency room for evaluation of dysuria. Differentials include but are not limited to interstitial cystitis, urinary tract infection, sepsis, pyelonephritis. Patient's vitals are reassuring although patient is noted to have bradycardia while in the exam room while resting. No reports of syncope and he had not believe this is represents pathologic bradycardia. Given patient's history and urinalysis she is suffering from urinary tract infection and we will treat her accordingly. I do not feel additional labs are necessary as she is well-appearing with stable vitals Departure Disposition: 01 HOME / SELF CARE / HOMELESS Impression: Primary Impression: Acute urinary tract infection Condition: Stable Discharge Instructions: Urinary Tract Infection, Adult Referrals: NO PRIMARY CARE PROVIDER (PCP) Prescriptions Cephalexin*Monohydrate* (Keflex*) 500 Mg Capsule 1 CAP PO Q12H for 10 Days, #20 CAP Prov: AMARI TAMAYO MD 07/27/24 Education Educated: Patient Educated regarding: diagnosis, treatment, need for follow up Signature Scribe Signature: No scribe Attestation: The note accurately reflects work and decisions made by me.Amari Tamayo MD 07/27/24 01:34 AMARI TAMAYO MD Jul 27, 2024 01:27
[2024-07-27] MEDS ORDERED: CEPH-585 PO (01:33)
[2024-07-27] MEDS: CefTRIAXone 1000mg IM Kit (w/lidocaine diluent) IM ONE (02:02)
[2024-07-27 02:06] VITALS: BP 90/60; PULSE 45; RESP 16; TEMP 98.9; O2SAT 99
== END 2024-07-27 02:08 | disposition home or self-care (01) ==
LOC: ER 21:59
DX: N39.0 Urinary tract infection, site not specified (principal); J45.909 Unspecified asthma, uncomplicated; F12.90 Cannabis use, unspecified, uncomplicated
CPT/HCPCS: 81001; 81025; 87088; 96372; 99283; J0696; 81003; 87077